=== PATIENT | male | born 1955 | race Caucasian/White ===

== ENCOUNTER → 2017-06-28 | Outpatient (CLI) | payer BC ==
[2017-06-28 09:29] LABS: Appearance,Urine Clear (Clear); Bilirubin,Urine Negative (Negative); Blood,Urine Negative (Negative); Color,Urine Yellow; Glucose,Urine (UA) Negative (Negative); Ketones,Urine Negative (Negative); Leukocyte Esterase,Urine Negative (Negative); Nitrite,Urine Negative (Negative); PH, Urine 7.5 (5.0-8.0); Protein,Urine Negative (Negative); Specific Gravity,Urine 1.015 (1.001-1.035); Urobilinogen,Urine <2.0 mg/dL (<2.0)
[2017-06-28 09:40] LABS: ALT 39 U/L (21-72); AST 26 U/L (17-59); Alkaline Phosphatase 60 U/L (38-126); Anion Gap 10 mmol/L; Blood Urea Nitrogen 14 mg/dL (9-20); Calcium 9.5 mg/dL (8.4-10.2); Carbon Dioxide 28 mmol/L (22-30); Chloride 101 mmol/L (98-107); Glucose 171 mg/dL (74-99); Potassium 4.7 mmol/L (3.5-5.1); Sodium 139 mmol/L (137-145); Total Bilirubin 0.9 mg/dL (0.2-1.3); Total Protein 7.1 g/dL (6.3-8.2)
[2017-06-28 09:58] LABS: HCT 52.2 % (39.0-53.0); HGB 16.9 gm/dL (13.0-17.5); MCHC 32.3 g/dL (31.0-37.0); Mean Platelet Volume 7.3; Platelet Count 179 k/uL (150-450); RBC 5.44 m/uL (4.30-5.90); RDW 12.6 % (11.5-15.5); WBC 5.3 k/uL (3.8-10.6)
== END | disposition home or self-care (01) ==
LOC: LABPAT 08:36
PROVIDERS: ATTEND Orthopaedic Surgery Sports Medicine
DX: Z01.818 Encounter for other preprocedural examination (principal); M17.12 Unilateral primary osteoarthritis, left knee
CPT/HCPCS: 36415; 80053; 81003; 85027; 85730

== ENCOUNTER 2017-07-01 09:52 | Inpatient (IN) | payer BC ==
[2017-06-24 07:58] VITALS: BMI 43.4
[~2017-07-01 09:52] MED LIST: ACETAMINOPHEN TAB 500 MG TAB PO ONE; HYDROmorphone 0.5 MG/0.5 ML SYRINGE IVP PRN; MELOXICAM 7.5 MG TAB PO ONE; ONDANSETRON 4 MG/2 ML VIAL IVP ONE; ONDANSETRON 4 MG/2 ML VIAL IVP PRN; ROPIVACAINE 246.25 MG, EPINEPHrine 0.5 MG, KETOROLAC 30 MG, cloNIDine HCL/PF 80 MCG, WA... MISCELLANE ONE; TRANEXAMIC ACID 1,000 MG in SODIUM CHLORIDE 0.9% 50 ML IVPB ONE; fentaNYL (PF) 50 MCG/ML 2 ML AMP IV PRN
[2017-07-01] MEDS ORDERED: LIDOCAINE 1% 20 ML VIAL (10MG/ML) FOR IV START INTRADERMA ONE (10:50)
[2017-07-01] MEDS: LACTATED RINGERS 1,000 ML IV SCH ×5 (10:51→22:40)
[2017-07-01] MEDS ORDERED: MIDAZOLAM 2 MG/2 ML VIAL IV ONE (11:01)
[2017-07-01] MEDS ORDERED: HYDROcodone/APAP 7.5-325MG 1 EACH TAB PO PRN (11:33)
[2017-07-01] MEDS ORDERED: DIAZEPAM 5 MG TAB PO PRN (11:33)
[2017-07-01] MEDS ORDERED: TEMAZEPAM 15 MG CAP PO PRN (11:33)
[2017-07-01] MEDS ORDERED: MAGNESIUM HYDROXIDE 2,400 MG/10 ML CUP PO PRN (11:33)
[2017-07-01] MEDS ORDERED: HYDROmorphone 0.5 MG/0.5 ML SYRINGE IVP PRN ×3 (11:33)
[2017-07-01] MEDS ORDERED: ACETAMINOPHEN TAB 325 MG TAB PO PRN (11:33)
[2017-07-01] MEDS ORDERED: BISACODYL 10 MG SUPP RECTAL PRN (11:33)
[2017-07-01] MEDS ORDERED: NA PHOS,M-B/NA PHOS,DI-BA 133 ML ENEMA RECTAL PRN (11:33)
[2017-07-01] MEDS ORDERED: NALOXONE 0.4 MG/ML 1 ML VIAL IV PRN (11:33)
[2017-07-01] MEDS ORDERED: hydrOXYzine PAMOATE 25 MG CAP PO PRN (11:33)
[2017-07-01] MEDS ORDERED: traMADol 50 MG TAB PO PRN (11:33)
[2017-07-01] MEDS ORDERED: ONDANSETRON 4 MG/2 ML VIAL IVP PRN (11:33)
[2017-07-01] MEDS ORDERED: PHENYLEPHRINE-0.9% NACL SYG 1 MG/10 ML SYRINGE ONE (12:18)
[2017-07-01] MEDS ORDERED: fentaNYL (PF) 50 MCG/ML 2 ML AMP ONE (12:18)
[2017-07-01] MEDS ORDERED: ePHEDrine SULFATE/0.9% NACL/PF 50 MG/5 ML SYRINGE IV ONE (12:18)
[2017-07-01] MEDS ORDERED: LACTATED RINGERS 1,000 ML IV ONE (13:22)
--- NOTE | 2017-07-01 15:07 | XR ---
EXAMINATION TYPE: XR knee limited LT DATE OF EXAM: 07/01/2017 COMPARISON: NONE HISTORY: Postop total knee TECHNIQUE: 2 view left knee FINDINGS: Postoperative changes are evident. Tibial femoral condylar prostheses have been placed. No acute fractures are evident. IMPRESSION: 1. No acute fractures post knee replacement.
[2017-07-01] MEDS ORDERED: ceFAZolin 3 GM in SODIUM CHLORIDE 0.9% 100 ML IVPB SCH (16:00)
[2017-07-01] MEDS: HYDROcodone/APAP 7.5-325MG 1 EACH TAB PO PRN ×2 (16:27→22:41)
[2017-07-01] MEDS ORDERED: SENNOSIDES-DOCUSATE SODIUM 1 EACH TAB PO SCH (21:00)
[2017-07-01] MEDS: ASPIRIN 325 MG TAB PO SCH (21:04)
--- NOTE | 2017-07-01 21:05 | OP ---
OPERATIVE REPORT DATE OF PROCEDURE: 07/01/2017. SURGEON: Linden Parks MD. CHIEF ENGINEER: Ori GARNETT. PREOPERATIVE DIAGNOSIS: Left knee osteoarthrosis. POSTOPERATIVE DIAGNOSIS: Left knee osteoarthritis. OPERATION: Left total knee arthroplasty. ANESTHESIA: Spinal with sedation. ESTIMATED BLOOD LOSS: 100 mL. TOURNIQUET TIME: 58 minutes at 250 mmHg. COMPLICATIONS: None apparent. DRAINS: None. DISPOSITION: Disposition postanesthesia care unit. INDICATIONS: Benjamin is a very pleasant 62-year-old male with longstanding history of left knee pain. History and physical examination are consist with advanced left knee osteoarthrosis. He has been through significant nonoperative management up to this point. Further treatment options were discussed and he has decided to go forward with the left total knee arthroplasty. The risks of procedure were discussed with him in detail. These risks include, but are not limited to risk of infection, nerve damage, bleeding, pain and risk of deep vein thrombosis which could lead to fatal pulmonary embolism. There is also risk of loosening of the implant which could require revision operation. The patient understands these risks. All of his questions were answered to his satisfaction. Appropriate informed consent was obtained. DESCRIPTION OF PROCEDURE: Patient identified in preoperative holding area. Surgical sites marked by both the patient myself. He was given 2 g of Ancef IV for prophylactic purposes. He was then transferred to the operative suite, placed supine on the operative table. Spinal anesthetic was then administered dosed per the anesthesia without apparent complication. Examination under anesthesia was then performed. The patient had near full extension. He had 100 degrees of flexion. The medial collateral ligament, lateral collateral ligament and posterior cruciate ligaments were stable. Tourniquet was then placed high on the left upper thigh well-padded in preparation for surgery. The patient's left lower extremity was then prepped and draped in usual sterile fashion. Standard surgical pause undertaken to ensure that we were operating the correct site and that appropriate preoperative antibiotics were given. All staff in the room were in agreement and we proceeded. The outlines of the patella were marked surgical pen. A planned 12 cm vertical incision centered over the patella was marked surgical pen. Leg was then exsanguinated with an Esmarch dressing. The knee was then flexed and the tourniquet inflated to 250 mmHg. The total tourniquet time for the procedure was 58 minutes. Incision was then made with a 10 blade scalpel. Dissection was carried down sharply overlying fascia. Great care was taken to minimize the skin flaps. The knee was then exposed using a standard medial parapatellar approach. A small cuff of quadriceps tendon was left for suturing. He was in a bit of varus preoperatively. A standard medial release was then made. Superficial medial collateral ligament was dissected off of the bone around the posterior aspect of the proximal tibia. The medial meniscus was then excised as well. The lateral meniscus was also released anteriorly. The leg was then externally rotated. The patella was everted. The knee was flexed. The retractors were then placed to protect the collateral ligaments. I then proceeded to remove the infrapatellar fat pad. This was excised sharply tangentially with the fibers of the patellar tendon. I then proceeded to remove peripheral osteophytes. This was done with a rongeur. I then proceeded with the distal femoral resection. He did have near full extension. A planned 9 mm resection was then done. The femoral canal was then entered in midline of the femur approximately 10 mm anterior to the origin of the posterior cruciate ligament. The charmaine was then advanced down the center of the femur and placed intramedullary. Based on preop radiographs, the angle between the anatomic and mechanical axis of the femur was approximately 4 to 5 degrees. The valgus angle of this femoral cutting guide was then set at 4 degrees for the left knee. This femoral cutting guide was then advanced over the intramedullary charmaine. This was seated firmly against the femur. I then as mentioned planned to take 9 mm off the distal femur. The cutting block was then secured onto the femur with pins. The jig was then removed. The distal femoral cut was made through the slot of the block. The pins were then removed. The distal femoral cutting block was removed. The accuracy of the distal femoral cuts was checked with 2 flat bars. I then proceed to femoral sizing. Posterior referencing sizing guide was held firmly against the resected distal surface of the femur. Posterior condyles were resting on the posterior plane of the guide. Sizing stylus was then placed on the anterior femur. The size was measured as a size 9. I then assessed for femoral rotation. Plan was for 3 degrees of external rotation. 3 degrees of external rotation was placed onto the jig. These holes were then marked. I then confirmed the rotation by 3 separate methods. This was done using the epicondylar axis as well as [place] line and posterior referencing. It was deemed that the external rotation was proper. I then went forward with placing the femoral cutting block. This was placed over the previously placed pin holes. The [place]han wing was then placed onto the anterior slots to ensure that we would not notch the anterior femur with the anterior femoral cut. I then proceeded with the anterior femoral cut. This was flush with the anterior cortex of the femur. Posterior cuts were then made followed by the anterior chamfer cut, then the posterior chamfer cut. The cutting block was then removed. Throughout the resection, the collateral ligaments were protected with retractors. I then placed a trial size 9 femur. It fit very nice medial-lateral and fit flush with the distal end of the femur. The drill holes were then made. I then proceeded with the tibial cut. Planned for cruciate-retaining knee. The guide was placed and set for varus valgus and for slope. The height was set for approximate 2 mm resection from the medial tibial plateau which was the lower side. I was happy with the alignment amount of resection. The cutting block was then pinned to the proximal tibia. The alignment charmaine was charmaine was removed and the proximal tibia was resected with a reciprocating saw. Again this was done with retractors protecting the collateral ligaments as well as the posterior cruciate ligament. I then proceeded to evaluate the flexion and extension gaps. A 10 mm block was placed. Flexion-extension gaps were equal. I then proceeded with resection of posterior osteophytes. He had very minimal posterior osteophytes. This was done using a curved osteotome. There was this resected the posterior osteophytes and posterior capsule stripping was also done off the posterior aspect of the femur at this time. The osteophytes were then removed. I then proceeded with resection of patella. The thickness of patella was measured using the caliper. The thickness was 25 mm. The thickness of the anticipated patellar dome was taken into account. Resection was then performed and confirmed to be equal in 4 quadrants using a caliper. Approximately 14 mm of bone remained after resection. A 38 x 9.5 standard patellar trial was then placed. The holes were then drilled. The trial was then placed. I then proceeded with sizing the tibial plate. A size G tibial plate fit very nicely. I then placed the trial femur the tibial tray and patellar button. A 10 mm trial insert was also placed. The components fit very nicely. He had full flexion extension. I then incrementally trialed to a 14 mm insert. The flexion-extension gaps felt better and the knee was stable to both varus and valgus stress. The patella tracked appropriately. The tibial tray rotation was marked with a Bovie. This was externally rotated properly. I then proceed with tibial preparation. I first drilled the femoral holes removed femoral component. The tibial tray was then set for proper external rotation as well as mediolateral placement onto the tibia. It was then pinned into place. I then proceed with punching the keel. I then decided to proceed with cementing of all of our components. The knee was thoroughly irrigated with sterile saline solution via pulse lavage. The lateral geniculate artery was identified and cauterized. All blood was removed from the bone of the tibia femur and patella with pulse lavage. I then proceed with cementing. Two packs of antibiotic bone cement were prepared on the back table by the surgical aide. I then proceeded with cementing the tibia first. The cement was impacted into the keel as well as deeply seated in the bone. A 2nd coat of cement was then placed. The tibia was then impacted into place. Excess cement was removed with [place]'s and jokers. I then proceed with cementing the femoral component. Femoral component was also cemented using standard technique. Excess cement was removed. A 14 mm trial insert was then placed into the knee. It was brought into full extension with a constant axial load placed until the cement had hardened. The patellar components were then cemented. This was held firmly with a compressive device until the cement had dried. When the cement dried, the knee was taken out of extension. All excess cement was removed from around the prosthesis. I then trialed with a 14 mm insert. The knee was stable. It came into full extension. I decided to go forward with the 14 mm cross- linked cruciate-retaining tibial insert. The polyethylene was then placed onto the tibial tray and locked into place. The knee was then reduced. The knee was again further irrigated with sterile saline solution with antibiotic added. The tourniquet was then deflated. Total tourniquet time for the procedure was 58 minutes at 250 mmHg. Final components were Bernard persona size 9 cruciate-retaining femoral component, a size G tibial tray, a 14 mm medial congruent cruciate-retaining polyethylene insert and a 38 x 9.5 mm patella. I then proceeded with closure. Again, the knee was thoroughly irrigated. The quadriceps tendon and the medial retinaculum were reapproximated with #2 Ethibond suture. The extensor mechanism was then closed with a running #2 Quill suture. Subcutaneous tissues were then closed with 2-0 Vicryl suture. The skin was closed with a running 3-0 Quill suture. Dermabond was applied to the incision. Sterile compressive dressing was then applied. All sponge, needle counts were deemed correct prior to closure. The patient tolerated the procedure without apparent complication. He was transferred recovery room in stable condition. MMODL / IJN: [id number] /
[2017-07-02] MEDS: HYDROcodone/APAP 7.5-325MG 1 EACH TAB PO PRN ×2 (05:12→11:13)
[2017-07-02 07:43] LABS: Basophils % (A) 1 %; Eosinophils # (A) 0.1 k/uL (0-0.7); Eosinophils % (A) 2 %; HCT 48.2 % (39.0-53.0); HGB 15.1 gm/dL (13.0-17.5); Lymphocytes # (A) 0.8 k/uL (1.0-4.8); Lymphocytes % (A) 11 %; MCH 31.3 pg (25.0-35.0); MCHC 31.4 g/dL (31.0-37.0); MCV 99.7 fL (80.0-100.0); Mean Platelet Volume 8.3; Monocytes # (A) 0.8 k/uL (0-1.0); Monocytes % (A) 11 %; Neutrophils % (A) 73 %; Platelet Count 107 k/uL (150-450); RBC 4.84 m/uL (4.30-5.90); RDW 12.6 % (11.5-15.5); WBC 6.9 k/uL (3.8-10.6)
[2017-07-02] MEDS: LACTATED RINGERS 1,000 ML IV SCH (07:51)
--- NOTE | 2017-07-02 08:01 | P.CONS ---
History of Present Illness - Reason for Consult Consult date: 07/02/17 Requesting physician: Linden Parks - Chief Complaint Medical management for status post left knee arthroplasty. - History of Present Illness This is a 62-year-old white male with known history of hypertension and obesity who has had left knee pain for quite some time. The patient is now status post knee arthroplasty of the left. The patient's blood pressure has been stable. The patient has no significant chest pain or shortness of breath stated. No nausea, vomiting or diarrhea. The patient is nonsmoker. There is no illicit substance abuse noted. Standard postop pulmonary toilet has been instituted. Review of Systems Constitutional: Denies chills, Denies fever Eyes: denies blurred vision, denies pain Ears, nose, mouth and throat: Denies headache, Denies sore throat Cardiovascular: Denies chest pain, Denies shortness of breath Respiratory: Denies cough Gastrointestinal: Denies abdominal pain, Denies diarrhea, Denies nausea, Denies vomiting Musculoskeletal: Denies neck pain, Denies neck stiffness, Denies redness of joints Musculoskeletal: left: knee stiffness, knee swelling Integumentary: Denies lesions Neurological: Denies numbness, Denies weakness Past Medical History Past Medical History: Hypertension, Osteoarthritis (OA) History of Any Multi-Drug Resistant Organisms: None Reported Past Surgical History: Joint Replacement, Orthopedic Surgery, Tonsillectomy Additional Past Surgical History / Comment(s): arthroscopy knee, right knee replaced 2017 Past Anesthesia/Blood Transfusion Reactions: No Reported Reaction Past Psychological History: No Psychological Hx Reported Smoking Status: Never smoker Past Alcohol Use History: Occasional Past Drug Use History: None Reported - Past Family History Father Family Medical History: COPD Medications and Allergies Home Medications Medication Instructions Recorded Confirmed Type Cholecalciferol [Vitamin D3] 1,000 unit PO DAILY 06/24/17 07/01/17 History Losartan/Hydrochlorothiazide 1 tab PO DAILY 06/24/17 07/01/17 History [Hyzaar 100-12.5 Tablet] Allergies Allergy/AdvReac Type Severity Reaction Status Date / Time No Known Allergies Allergy Verified 07/01/17 12:46 Physical Exam Vitals: Vital Signs Temp Pulse Pulse Resp BP Pulse Ox 07/02/17 07:00 98.4 F 79 14 122/80 94 L 07/01/17 21:16 98.0 F 81 16 143/84 07/01/17 19:16 97.8 F 16 120/80 96 07/01/17 17:15 97.0 F L 18 128/82 95 07/01/17 16:55 97.0 F L 84 16 128/78 95 07/01/17 16:47 97 F L 87 87 119/70 07/01/17 16:40 97.0 F L 16 119/70 96 07/01/17 16:20 97.0 F L 90 16 135/73 92 L 07/01/17 15:47 97.9 F 91 14 125/71 95 07/01/17 15:16 82 18 112/70 95 07/01/17 15:00 87 18 113/71 92 L 07/01/17 14:46 87 18 117/62 92 L 07/01/17 14:35 97.4 F L 94 12 117/65 94 L 07/01/17 11:19 75 18 132/90 100 07/01/17 10:49 98.1 F 91 18 187/81 96 Intake and Output 07/01/17 07/02/17 07/02/17 22:59 06:59 14:59 Intake Total 200 Output Total 800 400 Balance -600 -400 Intake: IV 200 Output: Urine 800 400 Other: Weight 145.15 kg 145.15 kg - Constitutional General appearance: obese - EENT Eyes: EOMI - Neck Neck: no lymphadenopathy - Respiratory Respiratory: bilateral: CTA - Cardiovascular Rhythm: regular Heart sounds: normal: S1, S2 - Integumentary Integumentary: no cellulitis - Neurologic Neurologic: CNII-XII intact - Musculoskeletal Musculoskeletal: strength equal bilaterally - Psychiatric Psychiatric: A&O x's 3, appropriate affect Results CBC & Chem 7: 07/02/17 06:48 Labs: Abnormal Lab Results - Last 24 Hours (Table) 07/02/17 Range/Units 06:48 Plt Count 107 L (150-450) k/uL Lymphocytes # 0.8 L (1.0-4.8) k/uL Assessment and Plan (1) Hypertension Current Visit: Yes Status: Acute Code(s): I10 - ESSENTIAL (PRIMARY) HYPERTENSION SNOMED Code(s): 86774777 (2) Primary osteoarthritis of left knee Current Visit: Yes Status: Acute Code(s): M17.12 - UNILATERAL PRIMARY OSTEOARTHRITIS, LEFT KNEE SNOMED Code(s): 081544149706611 Plan: Continue standard postop protocol. Check CBC in a.m. Otherwise, Dr. Valera's group will covering the weekend. Anticipate discharge in the next 2-3 days if stabilizing as anticipated.
[2017-07-02 08:35] VITALS: BP 122/80; PULSE 79; RESP 14; TEMP 98.4
[2017-07-02] MEDS ORDERED: LOSARTAN 50 MG TAB PO SCH (09:00)
[2017-07-02] MEDS ORDERED: NON-FORMULARY DRUG (Losartan/Hydrochlorothiazide [Hyzaar 100-12.5 Tablet] 1 TAB) PO SCH (09:00)
[2017-07-02] MEDS ORDERED: HYDROCHLOROTHIAZIDE 12.5 MG CAP PO SCH (09:00)
[2017-07-02] MEDS: ASPIRIN 325 MG TAB PO SCH (10:03)
--- NOTE | 2017-07-02 10:37 | P.DS ---
Providers Date of admission: 07/01/17 09:52 Expected date of discharge: 07/02/17 Attending physician: Linden Parks Consults: 07/01/17 11:33 Consult Physician Routine Consulting Provider: Justyn Johnson Consult Reason/Comments: post op medical management Do you want consulting provider notified?: Yes Primary care physician: Justyn Johnson - Discharge Diagnosis(es) (1) Primary osteoarthritis of left knee Patient was admitted to the OR on 07/01/2017 to undergo Left Total Knee Arthroplasty. He had failed conservative measures as an outpatient and desired to proceed with elective surgery after given informed consent He underwent the above procedure which he tolerated well without complication. Postoperative hospital course has remained without complication. On day of discharge he is afebrile, vital signs stable, labs within acceptable ranges, tolerating by mouth meds and diet, voiding without difficulty, positive flatus, denies abdominal pain or calf pain, pain is controlled on oral pain medication and has no new complaints. Wound is benign, neurovascular status is intact, calf is soft and nontender, abdomen soft and nontender. Review of systems is negative for numbness, tingling, fever, chills, chest pain, shortness breath, nausea, vomiting, dizziness, headaches, slurred speech or other. Current Visit: Yes Status: Acute Priority: Medium Procedures: Left TKA Patient Condition at Discharge: Good Plan - Discharge Summary Discharge Rx Participant: Yes New Discharge Prescriptions: New Aspirin 325 mg PO BID #60 tab Docusate [Colace] 100 mg PO BID #60 capsule HYDROcodone/APAP 7.5-325MG [[place] 7.5-325] 1 - 2 each PO Q6HR PRN #90 tab PRN Reason: Pain No Action Cholecalciferol [Vitamin D3] 1,000 unit PO DAILY Losartan/Hydrochlorothiazide [Hyzaar 100-12.5 Tablet] 1 tab PO DAILY Discharge Medication List Cholecalciferol [Vitamin D3] 1,000 unit PO DAILY 06/24/17 [History] Losartan/Hydrochlorothiazide [Hyzaar 100-12.5 Tablet] 1 tab PO DAILY 06/24/17 [ History] Aspirin 325 mg PO BID #60 tab 07/02/17 [Rx] Docusate [Colace] 100 mg PO BID #60 capsule 07/02/17 [Rx] HYDROcodone/APAP 7.5-325MG [[place] 7.5-325] 1 - 2 each PO Q6HR PRN #90 tab [Rx] Follow up Appointment(s)/Referral(s): [facility], [NON-STAFF] - Linden Parks MD [STAFF PHYSICIAN] - 2 Weeks Activity/Diet/Wound Care/Special Instructions: Keep wound clean and dry Take meds as directed Follow-up with Dr. Parks in office Weight bear as tolerated Discharge Disposition: HOME WITH HOME HEALTH SERVICES
[2017-07-02] MEDS ORDERED: CHOLECALCIFEROL 1,000 UNIT TAB PO SCH (12:00)
[2017-07-02] MEDS ORDERED: MULTIVITAMINS, THERA 1 EACH TAB PO SCH (12:00)
== END 2017-07-02 11:48 | disposition home health service (06) | DRG 470 ==
LOC: 2ORMAIN 09:52 → 3SUR 14:35
PROVIDERS: ADMIT Orthopaedic Surgery Sports Medicine; ATTEND Orthopaedic Surgery Sports Medicine
PROC: 0SRD0J9 Replacement of Left Knee Joint with Synthetic Substitute, Cemented, Open Approach (ICD-10-PCS; principal; 2017-07-01 11:40)
DX: M17.12 Unilateral primary osteoarthritis, left knee (principal); E66.01 Morbid (severe) obesity due to excess calories; Z68.41 Body mass index [BMI] 40.0-44.9, adult; G47.33 Obstructive sleep apnea (adult) (pediatric); I10 Essential (primary) hypertension; Z79.1 Long term (current) use of non-steroidal anti-inflammatories (NSAID); Z79.899 Other long term (current) drug therapy; Z96.651 Presence of right artificial knee joint
CPT/HCPCS: 36415; 80053; 81003; 85025; 85027; 85730; 88300

== ENCOUNTER → 2018-03-10 | Outpatient (CLI) | payer BC ==
--- NOTE | 2018-03-10 19:21 | CONS ---
CONSULTATION DATE OF SERVICE: 03/10/2018 This 63-year-old gentleman who has been evaluated in [facility] for possible obstructive sleep apnea-hypopnea syndrome. HISTORY OF PRESENT ILLNESS/SLEEP WAKE EVALUATION: SLEEP SCHEDULE: Patient usual sleep schedule basically 7 days a week from around 9:00 p.m. until 8:30 a.m. FALLING ASLEEP: No problems with falling asleep. He does not have TV in bedroom. DURING SLEEP: He sleeps with his in different positions with snoring and witnessed by his episodes of stopped breathing and awakenings with gasping for air. Patient wakes up from sleep 3 times with 3 episodes of nocturia. DURING THE DAY/SLEEP WAKE EVALUATION: No history of hypnagogic hallucinations, sleep paralysis or cataplexy. [place] Sleepiness Scale is 7. In the morning, patient wakes up tired, usually does not take naps. PAST MEDICAL HISTORY: Positive for hypertension. MEDICATIONS: Losartan. PAST SURGICAL HISTORY: Bilateral knee replacement. SOCIAL HISTORY: Negative for smoking. Alcohol consumption occasional. FAMILY HISTORY: Hypertension, heart problems, emphysema. REVIEW OF SYSTEMS: Awakenings from sleep, snoring, episodes of stopped breathing. PHYSICAL EXAM: gentleman without distress. BP 150/86, HR 77, RR 18, height 5 feet 11 1/2, weight 351.4, body mass index 48.2, temperature 97.5, oxygen saturation on room air 94%. Oropharynx: Extremely low position of soft palate. Mallampati 4. Significant restriction of nasal breathing. Wide neck 20 and 0.5 inches in circumference. ABDOMEN: Obese. EXTREMITIES: 1+ bilateral ankle edema. Neck: Supple, no JVD. Thyroid is not palpable. LUNGS: Clear to percussion and to auscultation. Good air exchange. No wheezing or rhonchi. HEART: S1, S2 regular. No murmurs, gallops, or rubs. ABDOMEN: Obese. Soft and nontender. Bowel sounds are present. No organomegaly appreciated. EXTREMITIES: +1 ankle edema, bilateral. No clubbing or cyanosis. PAPER RECLAIMING MACHINE OPERATOR: Awake, alert, and oriented X3. Cranial nerves 2 to 7 intact. There is no fasciculation or atrophy. noted. No focal deficits observed. IMPRESSION: 1. Snoring, witnessed episodes of stopped breathing during the sleep, extremely low position of soft palate, wide neck, awakenings from sleep, obstructive sleep apnea- hypopnea syndrome. 2. Obesity, body mass index 48.2. 3. Hypertension. 4. Status post bilateral knee replacement. 5. Mild swelling of legs. PLAN: 1. Polysomnography for evaluation of patient's breathing during sleep. 2. CPAP/BiPAP titration if sleep study confirms obstructive sleep apnea-hypopnea syndrome. 3. Preferable position during sleep on the side. 4. No driving if patient feels any sleepiness. 5. I will see patient for follow up visit to explain results of testing and following plan. Thank you very much for referring this patient for consultation. Sincerely, Alverto Wynne MD, PhD, FAASM Diplomat of [employer] [place] [employer] Conference Manager of [facility] MMODL / IJN: [id number] /
== END | disposition home or self-care (01) ==
LOC: SLEEP 13:53
PROVIDERS: ATTEND Internal Medicine
DX: G47.33 Obstructive sleep apnea (adult) (pediatric) (principal); E66.9 Obesity, unspecified; I10 Essential (primary) hypertension; M79.89 Other specified soft tissue disorders; Z68.42 Body mass index [BMI] 45.0-49.9, adult; Z96.653 Presence of artificial knee joint, bilateral; Z79.899 Other long term (current) drug therapy
CPT/HCPCS: 99211

== ENCOUNTER → 2018-07-07 | Outpatient (CLI) | payer OTHER ==
--- NOTE | 2018-07-07 18:37 | PN ---
PROGRESS NOTE DATE OF SERVICE: 07/07/2018 This patient is a 63-year-old gentleman who has been followed in [facility] for treatment of obstructive sleep apnea-hypopnea syndrome. Recently the patient had a diagnostic polysomnogram and CPAP titration, and I discussed results of his sleep studies with the patient in detail. Diagnostic polysomnogram showed extremely severe obstructive sleep apnea-hypopnea syndrome. During titration, the patient's respiration was under control with a CPAP pressure of 18 cm of water. Subsequently the patient received his CPAP unit, started to use it, and he is able to use it practically every night. He does experience some difficulties with exhalation, especially when he is starting to use his CPAP unit. I checked his CPAP machine. The patient used it 27/30 nights for more than 4 hours. Average usage is 7.9 hours. Pressure is 17.7 cm of water. He has a quite significant leak at 65 L/minute. Apnea-hypopnea index for the last month is 8.5. The patient used a full-face mask and then he was switched to a nasal mask, but with the nasal mask there is a possibility that he started to open his mouth because it is difficult for him to exhale. RAMP is on automatic regimen. MEDICATIONS: Losartan. PHYSICAL EXAMINATION: GENERAL: A pleasant patient in no distress. VITAL SIGNS: BP 137/82, HR 86, RR 16. Weight 362, temperature 98.3, oxygen saturation at room air 95%. HEENT: PERRLA, EOMI. Evaluation of oropharynx showed tongue protrudes midline. Extremely low position of soft palate. Mallampati IV. NECK: Supple. No JVD. Thyroid is not palpable. LUNGS: Clear to percussion and to auscultation. Good air exchange. No wheezing or rhonchi. HEART: S1, S2 regular. No murmurs, gallops or rubs. ABDOMEN: Obese. EXTREMITIES: No clubbing or cyanosis. LAYBOY OPERATOR: Awake, alert, and oriented X3. Cranial nerves 2 to 7 intact. There is no fasciculation or atrophy. noted. No focal deficits observed. IMPRESSION: 1. Extremely severe obstructive sleep apnea-hypopnea syndrome; apnea-hypopnea index 113 with oxygen desaturation to 75.3%. Patient demonstrated great compliance with treatment, benefitting from treatment. 2. Patient is experiencing some difficulties with exhalation at the beginning of the night. 3. Obesity. 4. Hypertension. 5. Status post bilateral knee replacement. PLAN: 1. Patient will continue to use CPAP equipment every night for the whole night. 2. I changed RAMP from automatic regimen to regular regimen, starting from 5 cm of water for 45 minutes. 3. We will try a different style of full-face mask, Jolene View or DreamWear, with a goal to decrease his leak, but again leak could be related to his open mouth; patient recently using nasal mask. 4. Other options include usage of nasal mask with nasal strips and chinstrap. 5. If patient continues to have difficulties with exhalation, he is a candidate for usage treatment with BiPAP. Thank you very much for allowing me to participate in the management of your patient. Sincerely, Alverto Wynne MD, PhD, FAASM Diplomat of [place] [employer] [place] [employer] [facility] [place] [facility] / KARENN: [phone] /
== END ==
LOC: SLEEP 16:36
PROVIDERS: ATTEND Internal Medicine
DX: Z53.9 Procedure and treatment not carried out, unspecified reason (principal)

== ENCOUNTER 2019-07-17 | Day surgery (SDC) | payer OTHER | END 2019-07-17 14:59 | disposition home or self-care (01) | CPT/HCPCS: 88304; 84132; 87070; 87205; 87075; 11406; J2250; J1644; J1100; J2405; J0690; J2001; J3010; J2704 ==

== ENCOUNTER → 2020-03-07 | Outpatient (CLI) | payer OTHER ==
--- NOTE | 2020-03-07 15:41 | SFUN ---
SLEEP CENTER FOLLOW UP NOTE DATE OF SERVICE: 03/07/2020 A 65-year-old gentleman who has been followed in the Sleep Center with treatment of extremely severe obstructive sleep apnea-hypopnea syndrome. Previously patient came more than about 1-1/2 years ago. Patient continued to use his CPAP equipment. Sleeps better with CPAP. Feels better during the day. During previous visit, apnea-hypopnea index was in the range of 8.5. I checked the patient CPAP unit. CPAP pressure is 18 cm of water. Usage is 24/30 nights for more than 4 hours which is acceptable compliance. Leak is 49 L/minute which is high, but patient has sosa and mustache and using full-face mask. Apnea-hypopnea index, although only 1.3, which is absolutely perfect and showed improvement comparing with the last year. MEDICATIONS: Losartan. PHYSICAL EXAM: Patient in no distress. BP 168/92, HR 76, RR 16, height 6, 0, weight 333.2, BMI 45.2, temperature 98.0. Patient lost about 30 pounds comparing to the previous visit. OROPHARYNX: Extremely low position of soft palate. Mallampati 4. NECK: Supple, no JVD. Thyroid is not palpable. LUNGS: Clear to percussion and to auscultation. Good air exchange. No wheezing or rhonchi. HEART: S1, S2 regular. No murmurs, gallops, or rubs. ABDOMEN: Soft and nontender. Bowel sounds are present. No organomegaly appreciated. EXTREMITIES: No clubbing or cyanosis. TRAINING GENERALIST: Awake, alert, and oriented X3. Cranial nerves 2 to 7 intact. There is no fasciculation or atrophy. noted. No focal deficits observed. IMPRESSION: 1. Extremely severe obstructive sleep apnea-hypopnea syndrome with apnea-hypopnea index 113, and oxygen desaturation to 75.3%. Presently patient demonstrated great compliance with treatment of full normal position of breathing on CPAP. 2. Obesity, but the weight is better. Patient lost 30 pounds. 3. Hypertension. 4. Status post bilateral knee replacement. PLAN: 1. Patient will continue to use PAP equipment every night for the whole night. 2. Sleep hygiene with regular time in bed for at least 7-1/2 to 8 hours. 3. Precautions related to driving. No driving if feeling sleepiness. 4. I will maintain all necessary prescription for PAP supplies including mask, tube, filters. 5. Watching weight. 6. No driving if feeling sleepiness. 7. Follow-up visit in 6 months or earlier if patient has any problems. Thank you very much for allowing me to participate in the management of your patient. Sincerely, Alverto Wynne MD, PhD, FAASM Diplomat of [place] [employer] [place] [employer] Instructor of [facility] [place] [facility] / KARENN: [phone] /
== END | disposition home or self-care (01) ==
LOC: SLEEP 10:40
PROVIDERS: ATTEND Internal Medicine
DX: G47.33 Obstructive sleep apnea (adult) (pediatric) (principal); I10 Essential (primary) hypertension; E66.9 Obesity, unspecified; Z99.89 Dependence on other enabling machines and devices; Z96.653 Presence of artificial knee joint, bilateral; Z79.899 Other long term (current) drug therapy

== ENCOUNTER 2020-08-25 12:14 | Inpatient (IN) | payer MEDICARE, OTHER ==
[2020-08-25 13:05] LABS: Basophils % (A) 0 %; Eosinophils # (A) 0.1 k/uL (0-0.7); Eosinophils % (A) 1 %; HCT 47.1 % (39.0-53.0); HGB 16.5 gm/dL (13.0-17.5); Lymphocytes # (A) 0.7 k/uL (1.0-4.8); Lymphocytes % (A) 5 %; MCH 32.6 pg (25.0-35.0); MCV 93.1 fL (80.0-100.0); Mean Platelet Volume 7.5; Monocytes # (A) 0.8 k/uL (0-1.0); Monocytes % (A) 6 %; Neutrophils # (A) 13.3 k/uL (1.3-7.7); Neutrophils % (A) 88 %; Platelet Count 240 k/uL (150-450); RBC 5.05 m/uL (4.30-5.90); WBC 15.2 k/uL (3.8-10.6)
[2020-08-25] MEDS ORDERED: cefTRIAXone IN SWFI 1,000 MG/10 ML SYRINGE IVP STA (13:13)
[2020-08-25 13:19] LABS: ALT 48 U/L (4-49); African American GFR (CKD) >90 (>60 ml/min/1.73 sqM); Albumin 3.4 g/dL (3.5-5.0); Anion Gap 8 mmol/L; Blood Urea Nitrogen 16 mg/dL (9-20); C Reactive Protein 6.2 mg/dL (<1.0); Calcium 9.1 mg/dL (8.4-10.2); Carbon Dioxide 22 mmol/L (22-30); Chloride 105 mmol/L (98-107); Glucose 250 mg/dL (74-99); Non-African American GFR(CKD) >90 (>60 ml/min/1.73 sqM); Sodium 135 mmol/L (137-145)
--- NOTE | 2020-08-25 13:26 | XR ---
EXAMINATION TYPE: XR chest 1V portable DATE OF EXAM: 08/25/2020 COMPARISON: NONE HISTORY: Cough and weakness. TECHNIQUE: 2 AP portable frontal upright views of the chest is obtained. FINDINGS: There are multifocal and confluent opacities in the bilateral lungs. There is some silhou etting of the left heart border. The cardiac silhouette size is upper limits of normal. The osseous structures are intact. IMPRESSION: Bilateral multifocal and confluent opacities consistent with covid-19 infection.
[2020-08-25 13:27] LABS: AST 44 U/L (17-59); Alkaline Phosphatase 69 U/L (38-126); LDH 1459 U/L (313-618); Magnesium 1.9 mg/dL (1.6-2.3); Potassium 4.5 mmol/L (3.5-5.1)
[2020-08-25 13:34] LABS: INR 1.1 (<1.2); Partial Thromboplastin Time 22.1 sec (22.0-30.0); Prothrombin Time 11.4 sec (9.0-12.0)
[2020-08-25 13:43] LABS: D-Dimer >34.10 mg/L FEU (<0.60)
--- NOTE | 2020-08-25 14:05 | CT ---
EXAMINATION TYPE: CT chest angio for PE DATE OF EXAM: 08/25/2020 COMPARISON: Chest x-ray earlier today HISTORY: Bilateral leg swelling, Covid positive CT DLP: 1033.4 mGycm Automated exposure control for dose reduction was used. CONTRAST: CT Chest for pulmonary embolism performed with with IV Contrast, patient injected with 100 mL of Isov ue 370. FINDINGS: LUNGS: Corresponding to x-ray are multifocal and confluent groundglass opacities bilaterally. Patient unable to hold breath making evaluation suboptimal particularly for subcentimeter nodules. No concer neel masses. No pleural effusion or pneumothorax seen. MEDIASTINUM: There is suboptimal study with more dense contrast opacification of the thoracic aorta s howing no dissection. Ascending aorta measures up to 3.9 cm in diameter axial image 57. Adjacent main pulmonary artery measures 2.9 cm in diameter axial image 57. Suboptimal bolus without central sagit radu or significant lobar pulmonary embolism. Suboptimal evaluation for smaller segmental and subsegme ntal PE. There are prominent bilateral hilar lymph nodes. No cardiomegaly or pericardial effusion i s seen. Moderate coronary artery calcification in the LAD distribution is noted. OTHER: Small splenule anterior and inferior to the spleen. Slight underlying scoliotic curvature. IMPRESSION: 1. Suboptimal study, no large central pulmonary embolism, cannot exclude smaller segmental and subseg mental PE in this exam. 2. Bilateral multifocal and confluent groundglass opacities consistent with known covid-19 infection.
[2020-08-25] MEDS ORDERED: SODIUM CHLORIDE 0.9% 1,000 ML IV ONE (14:06)
[2020-08-25] MEDS ORDERED: DEXAMETHASONE SOD PHOSPHATE 4 MG/ML 1 ML VIAL IV STA (14:07)
[2020-08-25] MEDS ORDERED: SODIUM CHLORIDE 0.9% 1,000 ML IV SCH (14:15)
--- NOTE | 2020-08-25 15:28 | US ---
EXAMINATION TYPE: US venous doppler duplex LE DATE OF EXAM: 08/25/2020 3:12 PM COMPARISON: NONE CLINICAL HISTORY: b/l calf pain covid with high dimer. Covid + x 3 weeks SIDE PERFORMED: Bilateral TECHNIQUE: The lower extremity deep venous system is examined utilizing real time linear array sonog coco with graded compression, doppler sonography and color-flow sonography. VESSELS IMAGED: Common Femoral Vein Deep Femoral Vein Greater Saphenous Vein * Femoral Vein Popliteal Vein Small Saphenous Vein * Proximal Calf Veins (* superficial vessels) Right Leg: Positive for DVT from proximal popliteal vein to calf veins Left Leg: Positive for SVT in SSV < 2 cm from popliteal vein junction. IMPRESSION: There is acute deep vein thrombosis in the popliteal and calf veins of the right leg. There is limited superficial vein thrombosis in the left leg in the short saphenous vein.
[2020-08-25] MEDS ORDERED: HEPARIN SODIUM 1,000 UN/ML (10ML VL) IV ONE (15:37)
[2020-08-25] MEDS ORDERED: HEPARIN SODIUM 1,000 UN/ML (10ML VL) IV PRN (15:37)
--- NOTE | 2020-08-25 15:38 | ED ---
SOB HPI - General Chief Complaint: Shortness of Breath Stated Complaint: Bilateral Leg Pain,R/O DVT Time Seen by Provider: 08/25/20 12:31 Source: patient Mode of arrival: wheelchair Limitations: no limitations - History of Present Illness Initial Comments: 65-year-old male presenting for bilateral leg pain rule out deep venous ecchymosis as well as shortness of breath. Patient states he has had come in for the past 3 weeks he states that last week he had such significant shortest of breath he can barely walk a few steps. Patient states his legs have felt swollen bilaterally knees had pain in the calfs bilaterally. Patient told his primary care provider and was told to come here for evaluation of blood clot patient denies any hemoptysis. Deep inspiration he states his lungs feel tight patient was of breath after a steroid shot and breathing treatments last week feel overall better but is still present. Patient denies any history due to pu lmonary embolism he denies any history of brain bleeds or rectal bleeding. Patient denies any severe chest pressure dropping arm pain or diaphoresis. Patient states he has continued fatigue and general malaise. Remaining review of systems negative upon arrival patient is hypoxic but overall he does not appear toxic he is in no respiratory distress. - Related Data Home Medications Medication Instructions Recorded Confirmed Losartan/Hydrochlorothiazide 1 tab PO DAILY 06/24/17 08/25/20 [Hyzaar 100-12.5 Tablet] Albuterol Inhaler [Ventolin Hfa 2 puff INHALATION RT-QID PRN 08/25/20 08/25/20 Inhaler] Magnesium Oxide [Blackwell] 500 mg PO DAILY 08/25/20 08/25/20 Multivitamins, Thera [Multivitamin 1 tab PO DAILY 08/25/20 08/25/20 (formulary)] dexAMETHasone [Dexamethasone] 4 mg PO DAILY 08/25/20 08/25/20 Allergies Allergy/AdvReac Type Severity Reaction Status Date / Time No Known Allergies Allergy Verified 08/25/20 14:01 Review of Systems ROS Statement: Those systems with pertinent positive or pertinent negative responses have been documented in the HPI. ROS Other: All systems not noted in ROS Statement are negative. Past Medical History Past Medical History: Hypertension Additional Past Medical History / Comment(s): cyst mid back History of Any Multi-Drug Resistant Organisms: None Reported Past Surgical History: Joint Replacement, Orthopedic Surgery, Tonsillectomy Additional Past Surgical History / Comment(s): arthroscopy knee, benny knee replaced, colonoscopy Past Anesthesia/Blood Transfusion Reactions: Previous Problems w/ Anesthesia Additional Past Anesthesia/Blood Transfusion Reaction / Comment(s): attempted procedure 06/29 pt states unable to do r/t unable to use glidoscope was given letter Past Psychological History: No Psychological Hx Reported Smoking Status: Never smoker Past Alcohol Use History: Occasional Past Drug Use History: None Reported - Past Family History Father Family Medical History: No Reported History Additional Family Medical History / Comment(s): emphysema General Exam - General Exam Comments Initial Comments: General: The patient is awake and alert, in no distress Eye: Pupils are equal, round and reactive to light, extra-ocular movements are intact. No nystagmus. There is normal conjunctiva bilaterally. No signs of icterus. Ears, nose, mouth and throat: There are moist mucous membranes and no oral lesions. Neck: The neck is supple, there is no tenderness or JVD. Cardiovascular: There is a regular rate and rhythm. No murmur, rub or gallop is appreciated. Respiratory: Respirations are non-labored, breath sounds are equal. No wheezes, stridor. SOme rhonchi and rales noted. Gastrointestinal: Soft, non-distended, non-tender abdomen without masses or organomegaly noted. There is no rebound or guarding present. Musculoskeletal: Normal ROM, no tenderness. Strength 5/5. Sensation intact. Radial and DP pulses equal bilaterally 2+. Neurological: A&O x 3. CN II-XII intact grossly, There are no obvious motor or sensory deficits. Coordination appears grossly intact. Speech is normal. Skin: Skin is warm and dry and no rashes or lesions are noted. Claf pain b/l. no identified obvious swelling Psychiatric: Cooperative, appropriate mood & affect, normal judgment. Limitations: no limitations Course Vital Signs 08/25/20 08/25/20 12:23 14:03 Temperature 97.7 F Pulse Rate 122 H 102 H Respiratory 20 18 Rate Blood Pressure 151/85 151/108 O2 Sat by Pulse 89 L 91 L Oximetry Medical Decision Making - Medical Decision Making hypoxic on arrival. some cyanosis appreciated. he was tachycardic. pt placed on 6 L, oxygenation improved. no hx of home o2. patient has + dvt and SVT. patient has no obvious central PE however there is extensive pneumonia, consistent wtih recent covid infection. pt will be placed on high intensity heparin and admitted for close monitoring and pulm consultation. Dr Mcdonough agreeable to care plan. - Lab Data Result diagrams: 08/25/20 12:47 08/25/20 12:47 Lab Results 08/25/20 08/25/20 08/25/20 Range/Units 12:47 12:47 12:47 WBC 15.2 H (3.8-10.6) k/uL RBC 5.05 (4.30-5.90) m/uL Hgb 16.5 (13.0-17.5) gm/dL Hct 47.1 (39.0-53.0) % MCV 93.1 (80.0-100.0) fL MCH 32.6 (25.0-35.0) pg MCHC 35.0 (31.0-37.0) g/dL RDW 13.0 (11.5-15.5) % Plt Count 240 (150-450) k/uL MPV 7.5 Neutrophils % 88 % Lymphocytes % 5 % Monocytes % 6 % Eosinophils % 1 % Basophils % 0 % Neutrophils # 13.3 H (1.3-7.7) k/uL Lymphocytes # 0.7 L (1.0-4.8) k/uL Monocytes # 0.8 (0-1.0) k/uL Eosinophils # 0.1 (0-0.7) k/uL Basophils # 0.0 (0-0.2) k/uL PT 11.4 (9.0-12.0) sec INR 1.1 (<1.2) APTT 22.1 (22.0-30.0) sec D-Dimer >34.10 H (<0.60) mg/L FEU Sodium 135 L (137-145) mmol/L Potassium 4.5 (3.5-5.1) mmol/L Chloride 105 (98-107) mmol/L Carbon Dioxide 22 (22-30) mmol/L Anion Gap 8 mmol/L BUN 16 (9-20) mg/dL Creatinine 0.68 (0.66-1.25) mg/dL Est GFR (CKD-EPI)AfAm >90 (>60 ml/min/1.73 sqM) Est GFR (CKD-EPI)NonAf >90 (>60 ml/min/1.73 sqM) Glucose 250 H (74-99) mg/dL Plasma Lactic Acid Derek (0.7-2.0) mmol/L Calcium 9.1 (8.4-10.2) mg/dL Magnesium 1.9 (1.6-2.3) mg/dL Total Bilirubin 1.0 (0.2-1.3) mg/dL AST 44 (17-59) U/L ALT 48 (4-49) U/L Alkaline Phosphatase 69 (38-126) U/L Lactate Dehydrogenase 1459 H (313-618) U/L Troponin I (0.000-0.034) ng/mL C-Reactive Protein 6.2 H (<1.0) mg/dL NT-Pro-B Natriuret Pep pg/mL Total Protein 7.0 (6.3-8.2) g/dL Albumin 3.4 L (3.5-5.0) g/dL Coronavirus (PCR) (Not Detectd) 08/25/20 08/25/20 08/25/20 Range/Units 12:47 12:47 12:47 WBC (3.8-10.6) k/uL RBC (4.30-5.90) m/uL Hgb (13.0-17.5) gm/dL Hct (39.0-53.0) % MCV (80.0-100.0) fL MCH (25.0-35.0) pg MCHC (31.0-37.0) g/dL RDW (11.5-15.5) % Plt Count (150-450) k/uL MPV Neutrophils % % Lymphocytes % % Monocytes % % Eosinophils % % Basophils % % Neutrophils # (1.3-7.7) k/uL Lymphocytes # (1.0-4.8) k/uL Monocytes # (0-1.0) k/uL Eosinophils # (0-0.7) k/uL Basophils # (0-0.2) k/uL PT (9.0-12.0) sec INR (<1.2) APTT (22.0-30.0) sec D-Dimer (<0.60) mg/L FEU Sodium (137-145) mmol/L Potassium (3.5-5.1) mmol/L Chloride (98-107) mmol/L Carbon Dioxide (22-30) mmol/L Anion Gap mmol/L BUN (9-20) mg/dL Creatinine (0.66-1.25) mg/dL Est GFR (CKD-EPI)AfAm (>60 ml/min/1.73 sqM) Est GFR (CKD-EPI)NonAf (>60 ml/min/1.73 sqM) Glucose (74-99) mg/dL Plasma Lactic Acid Derek 1.7 (0.7-2.0) mmol/L Calcium (8.4-10.2) mg/dL Magnesium (1.6-2.3) mg/dL Total Bilirubin (0.2-1.3) mg/dL AST (17-59) U/L ALT (4-49) U/L Alkaline Phosphatase (38-126) U/L Lactate Dehydrogenase (313-618) U/L Troponin I <0.012 (0.000-0.034) ng/mL C-Reactive Protein (<1.0) mg/dL NT-Pro-B Natriuret Pep 186 pg/mL Total Protein (6.3-8.2) g/dL Albumin (3.5-5.0) g/dL Coronavirus (PCR) (Not Detectd) 08/25/20 Range/Units 12:47 WBC (3.8-10.6) k/uL RBC (4.30-5.90) m/uL Hgb (13.0-17.5) gm/dL Hct (39.0-53.0) % MCV (80.0-100.0) fL MCH (25.0-35.0) pg MCHC (31.0-37.0) g/dL RDW (11.5-15.5) % Plt Count (150-450) k/uL MPV Neutrophils % % Lymphocytes % % Monocytes % % Eosinophils % % Basophils % % Neutrophils # (1.3-7.7) k/uL Lymphocytes # (1.0-4.8) k/uL Monocytes # (0-1.0) k/uL Eosinophils # (0-0.7) k/uL Basophils # (0-0.2) k/uL PT (9.0-12.0) sec INR (<1.2) APTT (22.0-30.0) sec D-Dimer (<0.60) mg/L FEU Sodium (137-145) mmol/L Potassium (3.5-5.1) mmol/L Chloride (98-107) mmol/L Carbon Dioxide (22-30) mmol/L Anion Gap mmol/L BUN (9-20) mg/dL Creatinine (0.66-1.25) mg/dL Est GFR (CKD-EPI)AfAm (>60 ml/min/1.73 sqM) Est GFR (CKD-EPI)NonAf (>60 ml/min/1.73 sqM) Glucose (74-99) mg/dL Plasma Lactic Acid Derek (0.7-2.0) mmol/L Calcium (8.4-10.2) mg/dL Magnesium (1.6-2.3) mg/dL Total Bilirubin (0.2-1.3) mg/dL AST (17-59) U/L ALT (4-49) U/L Alkaline Phosphatase (38-126) U/L Lactate Dehydrogenase (313-618) U/L Troponin I (0.000-0.034) ng/mL C-Reactive Protein (<1.0) mg/dL NT-Pro-B Natriuret Pep pg/mL Total Protein (6.3-8.2) g/dL Albumin (3.5-5.0) g/dL Coronavirus (PCR) Detected A (Not Detectd) Disposition Clinical Impression: Hypoxia, DVT (deep venous thrombosis), Dyspnea, COVID-19, Pneumonia Disposition: ADMITTED IP TO THIS [facility] Condition: Serious Is patient prescribed a controlled substance at d/c from ED?: No Referrals: Justyn Johnson MD [Primary Care Provider] - 1-2 days Time of Disposition: 16:04 Decision to Admit Reason: Admit from EC Decision Date: 08/25/20 Decision Time: 16:04
[2020-08-25] MEDS ORDERED: NALOXONE 0.4 MG/ML 1 ML VIAL IV PRN (16:05)
[2020-08-25] MEDS: HEPARIN SOD,PORK IN 0.45% NACL 25,000 UNIT in 0.45% NACL 1 250ML.BAG IV SCH (16:20)
[2020-08-25] MEDS: SODIUM CHLORIDE 0.9% 1,000 ML IV SCH (16:28)
[2020-08-25 17:41] LABS: Ferritin 2159.5 ng/mL (22.0-322.0)
[2020-08-25] MEDS: ALBUTEROL HFA INHALER INHALATION SCH ×3 (20:37→23:49)
--- NOTE | 2020-08-26 00:06 | P.HPIM ---
History of Present Illness H&P Date: 08/25/20 Chief Complaint: Shortness of breath Patient is a 65-year-old male with a known history of hypertension, recently diagnosed COVID-19 infection on 3 weeks ago and was continued on dexamethasone at home. Patient was seen by his primary care physician. Patient states that he was improving but for the past 1 week he has been having increased short of breath and barely walk few steps. He was also complaining of chest tightness and unable to take deep breaths. Patient was also complaining of bilateral knee swelling and calf pain. Patient was told by his primary care physician to come to ER for evaluation. Denied any complaints of dizziness or lightheadedness. No complaints of chest pain currently. Patient continued to have generalized weakness and malaise and fatigue.No fever no chills. No dysuria or hematuria. No hematemesis or melena. On admission patient was tachycardic and pulse ox 89% on room air. Patient was placed on oxygen via nasal cannula at 5 L and is saturating at 91%. Chest x-ray showed bilateral multifocal and confluent opacities consistent with COVID-[address] angio of the chest showed suboptimal study. No large central pulmonary embolism cannot exclude small segmental and subsegmental PE in the exam. Bilateral multifocal and confluent groundglass opacities consistent with known COVID-19 infection. Bilateral lower extremity duplex scan showed acute DVT in the popliteal and calf veins in the right leg. There is limited superficial vein thrombosis in the left leg in the short saphenous vein. COVID-19 PCR detected. Laboratory data showed LDH 1459, CRP 6.2 and ferritin 2159.5 and sodium 135 and WBC 15.2 lymphocytes 0.7 and D-dimer is greater than 34 proBNP 186 and blood sugar is 250 Review of Systems Constitutional: Patient denies any fever or chills . patient does have generalized weakness malaise and fatigue. Abdomen: Patient denied nausea vomiting and diarrhea and abdominal pain. Cardiovascular: Patient denies any chest pain or short of breath no palpitations. Respiratory: cough with the problem protein. Patient does have shortness of breath Neurologic: Patient denied any numbness or tingling headache. Musculoskeletal: Patient denies any complaints of joint swelling or deformity. Skin: Negative Psychiatric: Negative Endocrine: No heat or cold intolerance. No recent weight gain. Genitourinary: No dysuria or hematuria. All other 14 point ROS negative except the above Past Medical History Past Medical History: Hypertension Additional Past Medical History / Comment(s): cyst mid back: removed a year ago History of Any Multi-Drug Resistant Organisms: None Reported Past Surgical History: Joint Replacement, Orthopedic Surgery, Tonsillectomy Additional Past Surgical History / Comment(s): arthroscopy knee, benny knee replaced, colonoscopy Past Anesthesia/Blood Transfusion Reactions: Previous Problems w/ Anesthesia Additional Past Anesthesia/Blood Transfusion Reaction / Comment(s): attempted procedure 06/29 pt states unable to do r/t unable to use glidoscope was given letter Past Psychological History: No Psychological Hx Reported Smoking Status: Never smoker Past Alcohol Use History: Occasional Past Drug Use History: None Reported - Past Family History Father Family Medical History: No Reported History Additional Family Medical History / Comment(s): emphysema Medications and Allergies Home Medications Medication Instructions Recorded Confirmed Type Losartan/Hydrochlorothiazide 1 tab PO DAILY 06/24/17 08/25/20 History [Hyzaar 100-12.5 Tablet] Albuterol Inhaler [Ventolin Hfa 2 puff INHALATION RT-QID PRN 08/25/20 08/25/20 History Inhaler] Magnesium Oxide [Blackwell] 500 mg PO DAILY 08/25/20 08/25/20 History Multivitamins, Thera [Multivitamin 1 tab PO DAILY 08/25/20 08/25/20 History (formulary)] dexAMETHasone [Dexamethasone] 4 mg PO DAILY 08/25/20 08/25/20 History Allergies Allergy/AdvReac Type Severity Reaction Status Date / Time No Known Allergies Allergy Verified 08/25/20 14:01 Physical Exam Vitals: Vital Signs Temp Pulse Pulse Resp BP BP Pulse Ox 08/25/20 20:42 93 L 08/25/20 18:56 94 18 148/93 93 L 08/25/20 17:50 97.7 F 89 154/83 08/25/20 17:00 87 18 147/99 92 L 08/25/20 16:29 81 18 162/84 93 L 08/25/20 14:03 102 H 18 151/108 91 L 08/25/20 12:23 97.7 F 122 H 20 151/85 89 L Intake and Output 08/25/20 08/25/20 08/26/20 14:59 22:59 06:59 Intake Total 0 Balance 0 Intake: Oral 0 Other: Weight 145.15 kg 145.15 kg PHYSICAL EXAMINATION: Patient is lying in the bed comfortably, no acute distress, awake alert and oriented.. HEENT: Normocephalic. Neck is supple. Pupils reactive. Nostrils clear. Oral cavity is moist. Ears reveal no drainage. Neck reveals no JVD, carotid bruits, or thyromegaly. CHEST EXAMINATION: Trachea is central. Symmetrical expansion. Bibasilar diminished air entryLung alexis clear to auscultation and percussion. CARDIAC: Normal S1, S2 with no gallops. No murmurs ABDOMEN: Soft. Bowel sounds normal. No organomegaly. No abdominal bruits. Extremities: Patient does have swelling of the right lower extremity and calf tenderness. . No clubbing or cyanosis Neurologically awake, alert, oriented x3 with well-coordinated movements. No focal deficits noted Skin: No rash or skin lesions. Psychiatric: Coperative. Nonsuicidal Musculoskeletal: No joint swelling or deformity. Normal range of motion. Results CBC & Chem 7: 08/25/20 12:47 08/25/20 12:47 Labs: Abnormal Lab Results - Last 24 Hours (Table) 08/25/20 08/25/20 08/25/20 Range/Units 12:47 12:47 12:47 WBC 15.2 H (3.8-10.6) k/uL Neutrophils # 13.3 H (1.3-7.7) k/uL Lymphocytes # 0.7 L (1.0-4.8) k/uL APTT (22.0-30.0) sec D-Dimer >34.10 H (<0.60) mg/L FEU Sodium 135 L (137-145) mmol/L Glucose 250 H (74-99) mg/dL Ferritin 2159.5 H (22.0-322.0) ng/mL Lactate Dehydrogenase 1459 H (313-618) U/L C-Reactive Protein 6.2 H (<1.0) mg/dL Albumin 3.4 L (3.5-5.0) g/dL Coronavirus (PCR) (Not Detectd) 08/25/20 08/25/20 Range/Units 12:47 22:00 WBC (3.8-10.6) k/uL Neutrophils # (1.3-7.7) k/uL Lymphocytes # (1.0-4.8) k/uL APTT 53.1 H (22.0-30.0) sec D-Dimer (<0.60) mg/L FEU Sodium (137-145) mmol/L Glucose (74-99) mg/dL Ferritin (22.0-322.0) ng/mL Lactate Dehydrogenase (313-618) U/L C-Reactive Protein (<1.0) mg/dL Albumin (3.5-5.0) g/dL Coronavirus (PCR) Detected A (Not Detectd) Thrombosis Risk Factor Assmnt - DVT/VTE Prophylaxis DVT/VTE Prophylaxis: Pharmacologic Prophylaxis ordered - Choose All That Apply Any of the Below Risk Factors Present?: Yes Each Factor Represents 1 point: Obesity (BMI >25) Other Risk Factors: Yes Each Risk Factor Represents 2 Points: Age 61-74 years Thrombosis Risk Factor Assessment Total Risk Factor Score: 3 Thrombosis Risk Factor Assessment Level: Moderate Risk Assessment and Plan Assessment: Acute DVT in the popliteal vein and calf veins of the right leg and superficial veins thrombosis in the left leg in the short saphenous vein. Elevated D-dimer, ferritin, LDH and CRP levels Recent history of COVID-19 3 weeks ago Acute hypoxic respiratory failure requiring oxygen via nasal cannula Sinus tachycardia Hypertension Bilateral knee replacement history Moderate obesity with BMI 43.4 DVT prophylaxis patient is on heparin drip. Plan: Patient will be continued heparin drip and oxygen supplementation. Continue with pain management and can with home medications and follow-up closely.Follow- up inflammatory markers. Further recommendations based on clinical course. Time with Patient: Greater than 30
[2020-08-26] MEDS: HEPARIN SOD,PORK IN 0.45% NACL 25,000 UNIT in 0.45% NACL 1 250ML.BAG IV SCH ×2 (02:54→15:33)
[2020-08-26] MEDS: ALBUTEROL HFA INHALER INHALATION SCH ×6 (03:16→23:28)
[2020-08-26 08:57] LABS: Basophils % (A) 0 %; Eosinophils % (A) 0 %; HGB 15.4 gm/dL (13.0-17.5); Lymphocytes # (A) 1.2 k/uL (1.0-4.8); Lymphocytes % (A) 9 %; MCH 31.3 pg (25.0-35.0); MCHC 32.7 g/dL (31.0-37.0); MCV 95.6 fL (80.0-100.0); Mean Platelet Volume 7.9; Monocytes # (A) 0.8 k/uL (0-1.0); Monocytes % (A) 6 %; Neutrophils # (A) 11.5 k/uL (1.3-7.7); Neutrophils % (A) 83 %; Platelet Count 273 k/uL (150-450); RBC 4.92 m/uL (4.30-5.90); RDW 13.7 % (11.5-15.5); WBC 13.8 k/uL (3.8-10.6)
[2020-08-26] MEDS ORDERED: LOSARTAN-HCTZ 50-12.5 MG 1 EACH TAB PO SCH (09:00)
[2020-08-26] MEDS: LOSARTAN 50 MG TAB PO SCH (09:12)
[2020-08-26] MEDS: MULTIVITAMINS, THERA 1 EACH TAB PO SCH (09:12)
[2020-08-26] MEDS: dexAMETHasone 2 MG TAB PO SCH (09:12)
[2020-08-26] MEDS: MAGNESIUM OXIDE 400 MG TAB PO SCH (09:12)
[2020-08-26] MEDS: SODIUM CHLORIDE 0.9% 1,000 ML IV SCH ×2 (09:13→17:24)
[2020-08-26 09:17] LABS: African American GFR (CKD) >90 (>60 ml/min/1.73 sqM); Anion Gap 7 mmol/L; Blood Urea Nitrogen 13 mg/dL (9-20); C Reactive Protein 6.7 mg/dL (<1.0); Calcium 9.2 mg/dL (8.4-10.2); Carbon Dioxide 24 mmol/L (22-30); Chloride 108 mmol/L (98-107); Glucose 114 mg/dL (74-99); LDH 1256 U/L (313-618); Non-African American GFR(CKD) >90 (>60 ml/min/1.73 sqM); Potassium 5.1 mmol/L (3.5-5.1); Sodium 139 mmol/L (137-145)
--- NOTE | 2020-08-26 14:33 | P.CNPUL ---
History of Present Illness Consult date: 08/26/20 Requesting physician: Mario Chambers Reason for consult: pneumonia Chief complaint: Shortness of breath History of present illness: This is a 65-year-old white male with history of hypertension, has been feeling ill for the last 3 weeks. Patient was diagnosed with COVID-19 infection over 3 weeks ago. And he was taken Decadron at home. This was prescribed to him by his primary care physician. Patient had multiple constitutional symptoms including cough, shortness of breath, fever, aches and pains, weakness, fatigue, and over the last 1 week, his shortness of breath has become much worse. Patient was seen in the ER yesterday, noted to have bilateral patchy infiltrates. Patient was admitted with the impression of acute hypoxic respiratory failure secondary to COVID-[address] angiogram of the chest was suboptimal individual however bilateral multifocal groundglass opacities bilateral venous Doppler was done and it showed positive DVT in the left popliteal and calf veins.Patient was started on heparin. Covid PCR was positive. Inflammatory markers were elevated including LDH of 1459 CRP of 6.2 patient was noted to have elevated d-dimer lymphopenia. And WBC count of 15.2. Patient is now on 4 L nasal cannula and his O2 sats is 92%. Patient is obviously out of the window for rem , and he is not sick enough to be placed on toci Patient is now on the COVID-19 cocktail, and we are seeing him on consultation. Review of Systems Constitutional: Patient had fever, weakness, fatigue, malaise, and generalized aches and pains for the last 3 weeks GI: Denies nausea vomiting abdominal pain melena or hematemesis. Cardiovascular: Negative. Respiratory: Cough and shortness of breath. Neurologic: No headache blurred vision or dizziness. Musculoskeletal: Vague aches and pains Skin: Negative Psychiatric: Negative Endocrine: Negative. Genitourinary: No dysuria or hematuria. Hematologic: No history of clotting bleeding or bruising. Past Medical History Past Medical History: Hypertension Additional Past Medical History / Comment(s): cyst mid back: removed a year ago History of Any Multi-Drug Resistant Organisms: None Reported Past Surgical History: Joint Replacement, Orthopedic Surgery, Tonsillectomy Additional Past Surgical History / Comment(s): arthroscopy knee, benny knee replaced, colonoscopy Past Anesthesia/Blood Transfusion Reactions: Previous Problems w/ Anesthesia Additional Past Anesthesia/Blood Transfusion Reaction / Comment(s): attempted procedure 06/29 pt states unable to do r/t unable to use glidoscope was given letter Past Psychological History: No Psychological Hx Reported Smoking Status: Never smoker Past Alcohol Use History: Occasional Past Drug Use History: None Reported - Past Family History Father Family Medical History: No Reported History Additional Family Medical History / Comment(s): emphysema Medications and Allergies Home Medications Medication Instructions Recorded Confirmed Type Losartan/Hydrochlorothiazide 1 tab PO DAILY 06/24/17 08/25/20 History [Hyzaar 100-12.5 Tablet] Albuterol Inhaler [Ventolin Hfa 2 puff INHALATION RT-QID PRN 08/25/20 08/25/20 History Inhaler] Magnesium Oxide [Blackwell] 500 mg PO DAILY 08/25/20 08/25/20 History Multivitamins, Thera [Multivitamin 1 tab PO DAILY 08/25/20 08/25/20 History (formulary)] dexAMETHasone [Dexamethasone] 4 mg PO DAILY 08/25/20 08/25/20 History Allergies Allergy/AdvReac Type Severity Reaction Status Date / Time No Known Allergies Allergy Verified 08/25/20 14:01 Physical Exam Vitals: Vital Signs Temp Pulse Pulse Resp BP BP Pulse Ox 08/26/20 12:00 88 20 169/96 92 L 08/26/20 08:00 97.6 F 92 20 144/95 92 L 08/26/20 07:48 86 L 08/26/20 04:00 97.6 F 78 18 153/85 91 L 08/26/20 01:20 84 18 08/26/20 00:00 97.5 F L 84 18 159/91 91 L 08/25/20 20:42 93 L 08/25/20 20:00 97.5 F L 84 17 154/83 93 L 08/25/20 18:56 94 18 148/93 93 L 08/25/20 17:50 97.7 F 89 154/83 08/25/20 17:00 87 18 147/99 92 L 08/25/20 16:29 81 18 162/84 93 L Intake and Output 08/25/20 08/26/20 08/26/20 22:59 06:59 14:59 Intake Total 0 243.033 360 Balance 0 243.033 360 Intake: Intake, IV Titration 243.033 Amount Heparin Sod,Pork in 0.45% 243.033 NaCl 25,000 unit In 0.45 % NaCl 1 250ml.bag @ 15. 846 UNITS/KG/HR 23 mls/hr IV .[id number] [facility] Rx#: [id number] Oral 0 360 Other: # Voids 1 0 Weight 145.15 kg Physical Exam: Revealed a 65-year-old white male, obese, in no distress. On few liters nasal cannula. Head: Atraumatic, normocephalic HEENT:[Neck is supple.] [No neck masses.] [No thyromegaly.] [No JVD.]. EOMI, anicteric, no neck masses, no JVD, Chest: [Symmetrical chest expansion crackles at the bases bilaterally.] Cardiac Exam: [Normal S1 and S2, no S3 gallop, no murmur.] Abdomen: [Soft, nontender, no megaly, no rebound, no guarding, normal bowel sounds.] Extremities: There is evidence of right lower extremity swelling and calf tenderness. No clubbing or cyanosis Neurological Exam: [No focal neurologic deficit.] Alert and oriented 3. Psychiatric: Normal mood affect and normal mental status examination. Skin: No rashes. Musculoskeletal: No deformities, no limitation in range of motion. Results - Laboratory Findings CBC and BMP: 08/26/20 07:20 08/26/20 07:20 PT/INR, D-dimer PT 11.4 sec (9.0-12.0) 08/25/20 12:47 INR 1.1 (<1.2) 08/25/20 12:47 D-Dimer 29.31 mg/L FEU (<0.60) H 08/26/20 07:20 Abnormal lab findings: Abnormal Labs 08/25/20 08/25/20 08/25/20 12:47 12:47 12:47 WBC 15.2 H Neutrophils # 13.3 H Lymphocytes # 0.7 L APTT D-Dimer >34.10 H Sodium 135 L Chloride Glucose 250 H Ferritin 2159.5 H Lactate Dehydrogenase 1459 H C-Reactive Protein 6.2 H Albumin 3.4 L Coronavirus (PCR) 08/25/20 08/25/20 08/26/20 12:47 22:00 07:20 WBC 13.8 H Neutrophils # 11.5 H Lymphocytes # APTT 53.1 H D-Dimer Sodium Chloride Glucose Ferritin Lactate Dehydrogenase C-Reactive Protein Albumin Coronavirus (PCR) Detected A 08/26/20 08/26/20 08/26/20 07:20 07:20 07:20 WBC Neutrophils # Lymphocytes # APTT 53.2 H D-Dimer 29.31 H Sodium Chloride 108 H Glucose 114 H Ferritin Lactate Dehydrogenase 1256 H C-Reactive Protein 6.7 H Albumin Coronavirus (PCR) - Diagnostic Findings Chest x-ray: image reviewed (As noted in HPI) Additional studies: Venous Doppler as noted in HPI, patient had positive DVT in the right leg and positive superficial vein thromboses in the left leg Assessment and Plan Assessment: Impression: Acute hypoxic respiratory failure secondary to COVID-19 pneumonia symptoms have been going on for the last 3 weeks. Acute deep vein thrombosis involving the right lower extremity and superficial vein thromboses in the left leg. This is likely triggered by the COVID-19 infection. Sinus tachycardia secondary to above. Morbid obesity EOMI of 43.4. History of degenerative joint disease and bilateral knee replacement history. Elevated inflammatory markers secondary to COVID-19 infection. Recommendation: Continue present supportive care measures. Continue oxygen. Continue Decadron. Continue the COVID-19 cocktail. Continue heparin and transition to oral anticoagulation in the next 24 hours. Patient is out of the window for rem Patient does not qualify for toci We will continue to follow. Prognosis is relatively guarded. Time with Patient: Greater than 30
[2020-08-26] MEDS: FAMOTIDINE 20 MG TAB PO SCH (15:41)
[2020-08-26] MEDS: ZINC SULFATE 220 MG CAP PO SCH (15:41)
[2020-08-26 15:59] LABS: Ferritin 2056.9 ng/mL (22.0-322.0)
--- NOTE | 2020-08-26 21:39 | P.PN ---
Subjective Progress Note Date: 08/26/20 Principal diagnosis: Covid with DVT The patient is here essentially because of Covid hypoxia with pneumonia and element of DVT. Appreciate pulmonology input. The patient states right lower extremity swelling over the last several days. The mobility is noted as a possible cause. The patient now seems to be tolerating diet and states no voiding difficulties. Objective - Vital Signs Vital signs: Vital Signs Temp 97.8 F 08/26/20 16:00 Pulse 82 08/26/20 16:00 Resp 20 08/26/20 16:00 BP 161/98 08/26/20 16:00 Pulse Ox 95 08/26/20 16:00 Intake & Output 08/26/20 08/26/20 08/27/20 06:59 18:59 06:59 Intake Total 370.521 1929 Balance 558.407 3137 Intake: Intake, IV Titration 243.033 250 Amount Heparin Sod,Pork in 0.45% 243.033 250 NaCl 25,000 unit In 0.45 % NaCl 1 250ml.bag @ 15. 846 UNITS/KG/HR 23 mls/hr IV .[id number] [facility] Rx#: [id number] Oral 0 1560 Other: # Voids 1 4 # Bowel Movements 1 - Constitutional General appearance: Present: no acute distress, obese - Cardiovascular Rhythm: regular Heart sounds: normal: S1, S2 Abnormal Heart Sounds: Absent: S3 Gallop - Gastrointestinal General gastrointestinal: Present: soft. Absent: splenomegaly, tenderness - Psychiatric Psychiatric: Present: A&O x's 3, appropriate affect, intact judgment & insight - Labs CBC & Chem 7: 08/26/20 07:20 08/26/20 07:20 Labs: Abnormal Lab Results - Last 24 Hours (Table) 08/25/20 08/26/20 08/26/20 Range/Units 22:00 07:20 07:20 WBC 13.8 H (3.8-10.6) k/uL Neutrophils # 11.5 H (1.3-7.7) k/uL APTT 53.1 H (22.0-30.0) sec D-Dimer 29.31 H (<0.60) mg/L FEU Chloride (98-107) mmol/L Glucose (74-99) mg/dL Ferritin (22.0-322.0) ng/mL Lactate Dehydrogenase (313-618) U/L C-Reactive Protein (<1.0) mg/dL 08/26/20 08/26/20 Range/Units 07:20 07:20 WBC (3.8-10.6) k/uL Neutrophils # (1.3-7.7) k/uL APTT 53.2 H (22.0-30.0) sec D-Dimer (<0.60) mg/L FEU Chloride 108 H (98-107) mmol/L Glucose 114 H (74-99) mg/dL Ferritin 2056.9 H (22.0-322.0) ng/mL Lactate Dehydrogenase 1256 H (313-618) U/L C-Reactive Protein 6.7 H (<1.0) mg/dL Microbiology - Last 24 Hours (Table) 08/25/20 14:00 Blood Culture - Preliminary Blood No Growth after 24 hours 08/25/20 14:00 Blood Culture - Preliminary Blood No Growth after 24 hours Assessment and Plan (1) COVID-19 Current Visit: Yes Status: Acute Code(s): U07.1 - COVID-19 SNOMED Code(s): 189077054 (2) DVT (deep venous thrombosis) Current Visit: Yes Status: Acute Code(s): I82.409 - ACUTE EMBOLISM AND THOMBOS UNSP DEEP VN UNSP LOWER EXTREMITY SNOMED Code(s): 713780670 (3) Dyspnea Current Visit: Yes Status: Acute Code(s): R06.00 - DYSPNEA, UNSPECIFIED SNOMED Code(s): 177404822 (4) Hypoxia Current Visit: Yes Status: Acute Code(s): R09.02 - HYPOXEMIA SNOMED Code(s): 788904970 (5) Pneumonia Current Visit: Yes Status: Acute Code(s): J18.9 - PNEUMONIA, UNSPECIFIED ORGANISM SNOMED Code(s): 200946731 (6) Hypertension Current Visit: No Status: Acute Code(s): I10 - ESSENTIAL (PRIMARY) HYPERTEN CORRY SNOMED Code(s): 15313070 Plan: Continue current regimen of treatment. Most likely switch over to oral medication for DVT treatment. Prognosis discussed with the patient. He understands his overall prognosis at this time
[2020-08-27] MEDS: HEPARIN SOD,PORK IN 0.45% NACL 25,000 UNIT in 0.45% NACL 1 250ML.BAG IV SCH ×2 (00:38→12:42)
[2020-08-27] MEDS: ALBUTEROL HFA INHALER INHALATION SCH ×4 (03:04→16:51)
[2020-08-27 09:44] LABS: HCT 47.9 % (39.0-53.0); HGB 16.3 gm/dL (13.0-17.5); MCH 32.5 pg (25.0-35.0); MCHC 34.1 g/dL (31.0-37.0); MCV 95.4 fL (80.0-100.0); Mean Platelet Volume 7.5; Platelet Count 299 k/uL (150-450); RBC 5.02 m/uL (4.30-5.90); RDW 13.1 % (11.5-15.5); WBC 14.3 k/uL (3.8-10.6)
[2020-08-27] MEDS: MULTIVITAMINS, THERA 1 EACH TAB PO SCH (09:49)
[2020-08-27] MEDS: ZINC SULFATE 220 MG CAP PO SCH (09:50)
[2020-08-27] MEDS: dexAMETHasone 2 MG TAB PO SCH (09:50)
[2020-08-27] MEDS: FAMOTIDINE 20 MG TAB PO SCH (09:50)
[2020-08-27] MEDS: MAGNESIUM OXIDE 400 MG TAB PO SCH (09:50)
[2020-08-27] MEDS: LOSARTAN 50 MG TAB PO SCH (09:50)
[2020-08-27] MEDS: SODIUM CHLORIDE 0.9% 1,000 ML IV SCH (09:53)
[2020-08-27 10:13] LABS: ALT 51 U/L (4-49); AST 41 U/L (17-59); African American GFR (CKD) >90 (>60 ml/min/1.73 sqM); Albumin 3.4 g/dL (3.5-5.0); Alkaline Phosphatase 63 U/L (38-126); Anion Gap 3 mmol/L; Blood Urea Nitrogen 15 mg/dL (9-20); Calcium 9.8 mg/dL (8.4-10.2); Carbon Dioxide 32 mmol/L (22-30); Chloride 104 mmol/L (98-107); Glucose 114 mg/dL (74-99); Non-African American GFR(CKD) >90 (>60 ml/min/1.73 sqM); Potassium 5.7 mmol/L (3.5-5.1); Sodium 139 mmol/L (137-145); Total Bilirubin 0.7 mg/dL (0.2-1.3)
[2020-08-27 11:05] VITALS: RESP 20; TEMP 98.1
[2020-08-27 13:14] VITALS: BP 166/80; PULSE 73
[2020-08-27] MEDS ORDERED: APIXABAN 5 MG TAB PO SCH (14:30)
[2020-08-27] MEDS ORDERED: SODIUM POLYSTYRENE SULFONATE 15 GM/60 ML BOTTLE PO STA (14:55)
--- NOTE | 2020-08-27 14:57 | P.DS ---
Providers Date of admission: 08/25/20 17:33 Attending physician: Justyn Johnson Consults: 08/25/20 16:05 Consult Physician Routine Consulting Provider: Dennise Taveras Consult Reason/Comments: dvt, hypoxic covid pneumonia Do you want consulting provider notified?: Yes Primary care physician: Justyn Johnson - Discharge Diagnosis(es) (1) COVID-19 Current Visit: Yes Status: Acute (2) DVT (deep venous thrombosis) Current Visit: Yes Status: Acute (3) Dyspnea Current Visit: Yes Status: Acute (4) Hypoxia Current Visit: Yes Status: Acute (5) Pneumonia Current Visit: Yes Status: Acute (6) Hypertension Current Visit: No Status: Acute Hospital Course: This discharge summary an 65-year-old white male essentially admitted for Covid pneumonia with element of DVT. The patient was stabilized from an oxygen perspective and started on heparin. The patient is now discharged on Eliquis and doing well. Home oxygen therapy was started and the patient will follow up with me in 3 days. Patient Condition at Discharge: Stable Plan - Discharge Summary Discharge Rx Participant: No New Discharge Prescriptions: New Apixaban [Eliquis Starter Pack (for VTE)] 0 mg PO DIRECTED 30 Days #1 pack dexAMETHasone ORAL [Hexadrol] 6 mg PO DAILY #7 tab Continue Losartan/Hydrochlorothiazide [Hyzaar 100-12.5 Tablet] 1 tab PO DAILY Multivitamins, Thera [Multivitamin (formulary)] 1 tab PO DAILY Albuterol Inhaler [Ventolin Hfa Inhaler] 2 puff INHALATION RT-QID PRN PRN Reason: Shortness Of Breath dexAMETHasone [Dexamethasone] 4 mg PO DAILY Magnesium Oxide [Blackwell] 500 mg PO DAILY Discharge Medication List Losartan/Hydrochlorothiazide [Hyzaar 100-12.5 Tablet] 1 tab PO DAILY 06/24/17 [History] Albuterol Inhaler [Ventolin Hfa Inhaler] 2 puff INHALATION RT-QID PRN 08/25/20 [History] Magnesium Oxide [Blackwell] 500 mg PO DAILY 08/25/20 [History] Multivitamins, Thera [Multivitamin (formulary)] 1 tab PO DAILY 08/25/20 [History] dexAMETHasone [Dexamethasone] 4 mg PO DAILY 08/25/20 [History] Apixaban [Eliquis Starter Pack (for VTE)] 0 mg PO DIRECTED 30 Days #1 pack 08/27/20 [Rx] dexAMETHasone ORAL [Hexadrol] 6 mg PO DAILY #7 tab 08/27/20 [Rx] Follow up Appointment(s)/Referral(s): Anil Rangel MD [STAFF PHYSICIAN] - 09/24/20 1:00 pm Justyn Johnson MD [Primary Care Provider] - 09/02/20 2:10 pm
--- NOTE | 2020-08-27 16:37 | P.PN ---
Subjective Progress Note Date: 08/27/20 Principal diagnosis: Acute hypoxic respiratory failure secondary to COVID-19 pneumonia This is a 65-year-old white male with history of hypertension, has been feeling ill for the last 3 weeks. Patient was diagnosed with COVID-19 infection over 3 weeks ago. And he was taken Decadron at home. This was prescribed to him by his primary care physician. Patient had multiple constitutional symptoms including cough, shortness of breath, fever, aches and pains, weakness, fatigue, and over the last 1 week, his shortness of breath has become much worse. Patient was seen in the ER yesterday, noted to have bilateral patchy infiltrates. Patient was admitted with the impression of acute hypoxic respiratory failure secondary to COVID-[address] angiogram of the chest was suboptimal individual however bilateral multifocal groundglass opacities bilateral venous Doppler was done and it showed positive DVT in the left popliteal and calf veins.Patient was started on heparin. Covid PCR was positive. Inflammatory markers were elevated including LDH of 1459 CRP of 6.2 patient was noted to have elevated d-dimer lymphopenia. And WBC count of 15.2. Patient is now on 4 L nasal cannula and his O2 sats is 92%. Patient is obviously out of the window for rem , and he is not sick enough to be placed on toci Patient is now on the COVID-19 cocktail, and we are seeing him on consultation. Patient was reevaluated today on 08/27/2020, patient seems to be doing better, patient is on 2 L nasal cannula, and his O2 saturations 94%. Patient is on heparin and I will transition him to Eliquis. Patient could be discharged home today assuming he gets home oxygen, he remains in the COVID-19 cocktail, and he could go home on Eliquis. Patient is asking to be discharged home, he is doing great, feels much better than he felt when he came in. Objective - Vital Signs Vital signs: Vital Signs Temp 98.1 F 08/27/20 08:00 Pulse 73 08/27/20 12:00 Resp 20 08/27/20 12:00 BP 166/80 08/27/20 12:00 Pulse Ox 94 L 08/27/20 12:00 Intake & Output 08/26/20 08/27/20 08/27/20 18:59 06:59 18:59 Intake Total 1810 833.917 850 Balance 1810 833.917 850 Weight 145.5 kg Intake: Intake, IV Titration 250 733.917 250 Amount Heparin Sod,Pork in 0.45% 250 208.917 250 NaCl 25,000 unit In 0.45 % NaCl 1 250ml.bag @ 15. 846 UNITS/KG/HR 23 mls/hr IV .[id number] [facility] Rx#: [id number] Sodium Chloride 0.9% 1, 525 000 ml @ 75 mls/hr IV . [id number] [facility] Rx#:[id number] Oral 1560 100 600 Other: # Voids 4 4 # Bowel Movements 1 - Exam Physical Exam: Revealed a 65-year-old white male, obese, in no distress. On 2 L nasal cannula Head: Atraumatic, normocephalic HEENT:[Neck is supple.] [No neck masses.] [No thyromegaly.] [No JVD.]. EOMI, anicteric, no neck masses, no JVD, Chest: [Symmetrical chest expansion crackles at the bases bilaterally.] Cardiac Exam: [Normal S1 and S2, no S3 gallop, no murmur.] Abdomen: [Soft, nontender, no megaly, no rebound, no guarding, normal bowel sounds.] Extremities: There is evidence of right lower extremity swelling and calf t enderness. No clubbing or cyanosis Neurological Exam: [No focal neurologic deficit.] Alert and oriented 3. Psychiatric: Normal mood affect and normal mental status examination. Skin: No rashes. Musculoskeletal: No deformities, no limitation in range of motion. - Labs CBC & Chem 7: 08/27/20 08:49 08/27/20 08:49 Labs: Abnormal Lab Results - Last 24 Hours (Table) 08/27/20 08/27/20 Range/Units 08:49 08:49 WBC 14.3 H (3.8-10.6) k/uL Potassium 5.7 H (3.5-5.1) mmol/L Carbon Dioxide 32 H (22-30) mmol/L Glucose 114 H (74-99) mg/dL ALT 51 H (4-49) U/L Albumin 3.4 L (3.5-5.0) g/dL Microbiology - Last 24 Hours (Table) 08/25/20 14:00 Blood Culture - Preliminary Blood No Growth after 48 hours 08/25/20 14:00 Blood Culture - Preliminary Blood No Growth after 48 hours Assessment and Plan Assessment: Impression: Acute hypoxic respiratory failure secondary to COVID-19 pneumonia symptoms have been going on for the last 3 weeks. Acute deep vein thrombosis involving the right lower extremity and superficial vein thromboses in the left leg. This is likely triggered by the COVID-19 infection. Sinus tachycardia secondary to above. Morbid obesity EOMI of 43.4. History of degenerative joint disease and bilateral knee replacement history. Elevated inflammatory markers secondary to COVID-19 infection. Recommendation: Continue present supportive care measures. Continue oxygen. Arrange for home oxygen. Continue Decadron. Continue the COVID-19 cocktail. Start patient on Eliquis and discontinue heparin and he should be on Eliquis for at least 3 months. Cleared from our perspective to be discharged home today. Time with Patient: Less than 30
== END 2020-08-27 17:06 | disposition home or self-care (01) | DRG 177 ==
LOC: EC 12:14 → 3SCARD 17:33
PROVIDERS: ADMIT Family Medicine; ATTEND Family Medicine
DX: U07.1 COVID-19 (principal); J96.01 Acute respiratory failure with hypoxia; J12.82 Pneumonia due to coronavirus disease 2019; Z68.41 Body mass index [BMI] 40.0-44.9, adult; I82.812 Embolism and thrombosis of superficial veins of left lower extremity; I82.890 Acute embolism and thrombosis of other specified veins; I82.4Z1 Acute embolism and thrombosis of unspecified deep veins of right distal lower extremity; I82.431 Acute embolism and thrombosis of right popliteal vein; M19.90 Unspecified osteoarthritis, unspecified site; R00.0 Tachycardia, unspecified; R79.1 Abnormal coagulation profile; D72.810 Lymphocytopenia; E66.01 Morbid (severe) obesity due to excess calories; I10 Essential (primary) hypertension; Z82.5 Family history of asthma and other chronic lower respiratory diseases; Z96.653 Presence of artificial knee joint, bilateral; Z90.89 Acquired absence of other organs; Z79.899 Other long term (current) drug therapy; Z98.890 Other specified postprocedural states
CPT/HCPCS: 36415; 71045; 71275; 80048; 80053; 82728; 83605; 83615; 83735; 83880; 84145; 84484; 85025; 85027; 85379; 85610; 85730; 86140; 87040; 87635; 93005; 93970; 94640; 94760; 96361; 96374; 96375; 99285

== ENCOUNTER 2022-08-18 10:46 | Observation (INO) | payer MEDICARE, OTHER ==
[2022-08-18] MEDS ORDERED: ASPIRIN 81 MG PO STA (11:12)
[2022-08-18] MEDS ORDERED: NITROGLYCERIN SL TABS 0.4 MG TAB SUBLINGUAL PRN (11:39)
[2022-08-18 11:44] LABS: Basophils % (A) 0 %; Eosinophils # (A) 0.1 k/uL (0-0.7); Eosinophils % (A) 2 %; HCT 47.7 % (39.0-53.0); HGB 16.2 gm/dL (13.0-17.5); Lymphocytes # (A) 1.1 k/uL (1.0-4.8); Lymphocytes % (A) 22 %; MCH 31.6 pg (25.0-35.0); Mean Platelet Volume 7.8; Monocytes # (A) 0.4 k/uL (0-1.0); Monocytes % (A) 8 %; Neutrophils # (A) 3.4 k/uL (1.3-7.7); Neutrophils % (A) 65 %; Platelet Count 180 k/uL (150-450); RBC 5.12 m/uL (4.30-5.90); RDW 12.5 % (11.5-15.5); WBC 5.3 k/uL (3.8-10.6)
[2022-08-18 11:52] LABS: INR 0.9 (<1.2); Partial Thromboplastin Time 23.3 sec (22.0-30.0)
[2022-08-18 11:54] LABS: ALT 32 U/L (4-49); AST 28 U/L (17-59); African American GFR (CKD) >90 (>60 ml/min/1.73 sqM); Albumin 4.3 g/dL (3.5-5.0); Alkaline Phosphatase 70 U/L (38-126); Anion Gap 7 mmol/L; Blood Urea Nitrogen 13 mg/dL (9-20); Calcium 9.2 mg/dL (8.4-10.2); Carbon Dioxide 27 mmol/L (22-30); Chloride 103 mmol/L (98-107); Glucose 136 mg/dL (74-99); Magnesium 2.3 mg/dL (1.6-2.3); Non-African American GFR(CKD) >90 (>60 ml/min/1.73 sqM); Sodium 137 mmol/L (137-145); Total Bilirubin 1.2 mg/dL (0.2-1.3); Total Protein 7.5 g/dL (6.3-8.2)
--- NOTE | 2022-08-18 12:03 | ED ---
General Adult HPI - General Chief complaint: Chest Pain Stated complaint: Chest Pain Time Seen by Provider: 08/18/22 10:56 Source: patient, RN notes reviewed, old records reviewed Mode of arrival: ambulatory Limitations: no limitations - History of Present Illness Initial comments: Patient is a 67-year-old male with past medical history remarkable for h ypertension as well as suspected angina who presents emergency Department complaining of chest pain. Has been dealing with this chest pain for multiple months, however recently over the last few weeks he has noticed it is more persistent and seems to last longer. Describes it as a discomfort located over the left side of his chest. No known palliative or provocative factors. Denies any diaphoresis when the pain is present. Endorses possible mild shortness of breath when it is present. Denies any fevers, chills, cough. Denies any nausea or vomiting or abdominal pain. He is pending scheduling for possible stress test outpatient. Has not yet seen a credit charge authorizer. Denies any fevers, chills, cough. Denies any significant lower extremity edema. Denies orthopnea is any worse. Denies PND. Is on CPAP at home. No noticeable lower extremity pitting edema. Denies exertional dyspnea. Presents for further evaluation at this time.Patient does endorse some mild chest pain at this time. States it is not this severe chest discomfort that he feels.Patient does have a remote history of a DVT associated with a prior severe Covid 19 infection during the initial outbreak. No longer on blood thinners. - Related Data Home Medications Medication Instructions Recorded Confirmed Losartan/Hydrochlorothiazide 1 tab PO DAILY 06/24/17 08/18/22 [Hyzaar 100-12.5 Tablet] Albuterol Inhaler [Ventolin Hfa 2 puff INHALATION RT-QID PRN 08/25/20 08/18/22 Inhaler] Allergies Allergy/AdvReac Type Severity Reaction Status Date / Time No Known Allergies Allergy Verified 08/18/22 12:15 Review of Systems ROS Statement: Those systems with pertinent positive or pertinent negative responses have been documented in the HPI. Review of Systems: CONST: Denies fever EYES: Denies blurry vision ENT: Denies nasal congestion C/V: Endorses intermittent chest pain RESP: Denies shortness of breath GI: Denies abdominal pain : Denies dysuria SKIN: Denies rash. MSK: Denies joint pain. NEURO: Denies headache ROS Other: All systems not noted in ROS Statement are negative. Past Medical History Past Medical History: Hypertension Additional Past Medical History / Comment(s): cyst mid back: removed a year ago History of Any Multi-Drug Resistant Organisms: None Reported Past Surgical History: Joint Replacement, Orthopedic Surgery, Tonsillectomy Additional Past Surgical History / Comment(s): arthroscopy knee, benny knee replaced, colonoscopy Past Anesthesia/Blood Transfusion Reactions: Previous Problems w/ Anesthesia Additional Past Anesthesia/Blood Transfusion Reaction / Comment(s): attempted procedure 06/29 pt states unable to do r/t unable to use glidoscope was given letter Past Psychological History: No Psychological Hx Reported Smoking Status: Never smoker Past Alcohol Use History: Occasional Past Drug Use History: None Reported - Past Family History Father Family Medical History: No Reported History Additional Family Medical History / Comment(s): emphysema General Exam - General Exam Comments Initial Comments: General: Appears in no acute distress. HEAD: Normal with no signs of head trauma. EYES: PERRLA, EOMI, conjunctiva normal, no discharge. ENT: Hearing grossly intact, normal oropharynx. RESPIRATORY: Clear breath sounds bilaterally. No wheezes, rales, or rhonchi. C/V: Regular rate and rhythm. S1 and S2 auscultated, mild symmetrical bilateral lower extremity pitting edema, peripheral pulses 2+ and intact throughout ABD: Abd is soft, nontender, nondistended EXT: Normal range of motion, no obvious deformity SKIN: No rashes or lesions observed on exposed skin. NEURO: Alert and oriented 4 Limitations: no limitations Course Vital Signs 08/18/22 08/18/22 08/18/22 10:49 10:51 11:12 Temperature 97.8 F Pulse Rate 87 75 Pulse Rate [ 75 [employer] ] Respiratory 20 20 Rate Blood Pressure 179/98 139/86 O2 Sat by Pulse 96 98 Oximetry 08/18/22 08/18/22 08/18/22 11:51 12:00 12:59 Temperature Pulse Rate 70 70 64 Pulse Rate [ Business Job Titles ] Respiratory 16 16 16 Rate Blood Pressure 153/96 153/95 150/84 O2 Sat by Pulse 98 98 98 Oximetry Medical Decision Making - Medical Decision Making Was pt. sent in by a medical professional or institution (, PA, HEADING UP MACHINE OPERATOR, urgent care, hospital, or intermediate...) When possible be specific @ -No Did you speak to anyone other than the patient for history (EMS, parent, family, police, friend...)? What history was obtained from this source @ -No Did you review nursing and triage notes (agree or disagree)? Why? @ -I reviewed and agree with nursing and triage notes Were old charts reviewed (outside hosp., previous admission, EMS record, old EKG, old radiological studies, urgent care reports/EKG's, intermediate records)? Report findings @ -No old charts were reviewed Differential Diagnosis (chest pain, altered mental status, abdominal pain women, abdominal pain men, vaginal bleeding, weakness, fever, dyspnea, syncope, hea dache, dizziness, GI bleed, back pain, seizure, CVA, palpatations, mental health, musculoskeletal)? @ -Differential Chest Pain: Stable Angina, Unstable Angina, STEMI, NSTEMI Aortic Dissection, Pneumothorax, Musculoskeletal, Esophageal Spasm GERD, Cholecystitis, Pancreatitis, Zoster, this is not meant to be an all-inclusive list. EKG interpreted by me (3pts min.). @ -As above X-rays interpreted by me (1pt min.). @ -Chest x-ray shows no obvious cardiopulmonary process. CT interpreted by me (1pt min.). @ -None done U/S interpreted by me (1pt. min.). @ -None done What testing was considered but not performed or refused? (CT, X-rays, U/S, labs)? Why? @ -None What meds were considered but not given or refused? Why? @ -None Did you discuss the management of the patient with other professionals (professionals i.e. , PA, HEADING UP MACHINE OPERATOR, lab, RT, psych nurse, social studies teacher, surgical territory manager, teacher, correctional security officer, shoe caser)? Give summary @ -No Was smoking cessation discussed for >3mins.? @ -No Was critical care preformed (if so, how long)? @ -No Were there social determinants of health that impacted care today? How? (Homelessness, low income, unemployed, alcoholism, drug addiction, transportation, low edu. Level, literacy, decrease access to med. care, fci, rehab)? @ -No Was there de-escalation of care discussed even if they declined (Discuss DNR or withdrawal of care, Hospice)? DNR status @ -No What co-morbidities impacted this encounter? (DM, HTN, Smoking, COPD, CAD, Cancer, CVA, ARF, Chemo, Hep., AIDS, mental health diagnosis, sleep apnea, morbid obesity)? @ -Hypertension Was patient admitted / discharged? Hospital course, mention meds given and route, prescriptions, significant lab abnormalities, going to OR and other pertinent info. @ -Based on the patient's presentation and physical exam, I'm concerned for possible cardiopulmonary etiology for his current symptoms. We will obtain a cardiac workup including a screening EKG, chest x-ray, labs. He will be given an aspirin. We will attempt a sublingual nitro glycerin tablets to see if they affect his pain at all. He was in agreement this plan. Nitroglycerin did nothing to improve his discomfort. Remains stable in no distress at this time. EKG shows no signs of acute ischemia. Labs were r emarkable for an undetectable troponin. BNP is within normal limits. Remainder the labs are within acceptable limits. On reevaluation, patient remains relatively asymptomatic. We did discuss his w orkup. I did recommend that as his symptoms have been persistent as well as more frequently the and he has not yet followed up with credit charge authorizer I believe it is best to admit him to the hospital for evaluation. He was in agreement this plan. I did discuss the case with patient's admitting physician Dr. Johnson who is in agreement this plan. Cardiology was consulted. Echo was ordered. Undiagnosed new problem with uncertain prognosis? @ -No Drug Therapy requiring intensive monitoring for toxicity (Heparin, Nitro, Insulin, Cardizem)? @ -No Were any procedures done? @ -No Diagnosis/symptom? @ -Chest pain Acute, or Chronic, or Acute on Chronic? @ -Acute on chronic Uncomplicated (without systemic symptoms) or Complicated (systemic symptoms)? @ -Uncomplicated Side effects of treatment? @ -none Exacerbation, Progression, or Severe Exacerbation] @ -no Poses a threat to life or bodily function? @ -Possibly, unknown etiology - Lab Data Result diagrams: 08/18/22 11:12 08/18/22 11:12 Lab Results 08/18/22 08/18/22 08/18/22 Range/Units 11:12 11:12 11:12 WBC 5.3 (3.8-10.6) k/uL RBC 5.12 (4.30-5.90) m/uL Hgb 16.2 (13.0-17.5) gm/dL Hct 47.7 (39.0-53.0) % MCV 93.0 (80.0-100.0) fL MCH 31.6 (25.0-35.0) pg MCHC 34.0 (31.0-37.0) g/dL RDW 12.5 (11.5-15.5) % Plt Count 180 (150-450) k/uL MPV 7.8 Neutrophils % 65 % Lymphocytes % 22 % Monocytes % 8 % Eosinophils % 2 % Basophils % 0 % Neutrophils # 3.4 (1.3-7.7) k/uL Lymphocytes # 1.1 (1.0-4.8) k/uL Monocytes # 0.4 (0-1.0) k/uL Eosinophils # 0.1 (0-0.7) k/uL Basophils # 0.0 (0-0.2) k/uL PT 10.0 (9.0-12.0) sec INR 0.9 (<1.2) APTT 23.3 (22.0-30.0) sec Sodium 137 (137-145) mmol/L Potassium 4.0 (3.5-5.1) mmol/L Chloride 103 (98-107) mmol/L Carbon Dioxide 27 (22-30) mmol/L Anion Gap 7 mmol/L BUN 13 (9-20) mg/dL Creatinine 0.74 (0.66-1.25) mg/dL Est GFR (CKD-EPI)AfAm >90 (>60 ml/min/1.73 sqM) Est GFR (CKD-EPI)NonAf >90 (>60 ml/min/1.73 sqM) Glucose 136 H (74-99) mg/dL Calcium 9.2 (8.4-10.2) mg/dL Magnesium 2.3 (1.6-2.3) mg/dL Total Bilirubin 1.2 (0.2-1.3) mg/dL AST 28 (17-59) U/L ALT 32 (4-49) U/L Alkaline Phosphatase 70 (38-126) U/L Troponin I (0.000-0.034) ng/mL NT-Pro-B Natriuret Pep pg/mL Total Protein 7.5 (6.3-8.2) g/dL Albumin 4.3 (3.5-5.0) g/dL 08/18/22 08/18/22 Range/Units 11:12 11:12 WBC (3.8-10.6) k/uL RBC (4.30-5.90) m/uL Hgb (13.0-17.5) gm/dL Hct (39.0-53.0) % MCV (80.0-100.0) fL MCH (25.0-35.0) pg MCHC (31.0-37.0) g/dL RDW (11.5-15.5) % Plt Count (150-450) k/uL MPV Neutrophils % % Lymphocytes % % Monocytes % % Eosinophils % % Basophils % % Neutrophils # (1.3-7.7) k/uL Lymphocytes # (1.0-4.8) k/uL Monocytes # (0-1.0) k/uL Eosinophils # (0-0.7) k/uL Basophils # (0-0.2) k/uL PT (9.0-12.0) sec INR (<1.2) APTT (22.0-30.0) sec Sodium (137-145) mmol/L Potassium (3.5-5.1) mmol/L Chloride (98-107) mmol/L Carbon Dioxide (22-30) mmol/L Anion Gap mmol/L BUN (9-20) mg/dL Creatinine (0.66-1.25) mg/dL Est GFR (CKD-EPI)AfAm (>60 ml/min/1.73 sqM) Est GFR (CKD-EPI)NonAf (>60 ml/min/1.73 sqM) Glucose (74-99) mg/dL Calcium (8.4-10.2) mg/dL Magnesium (1.6-2.3) mg/dL Total Bilirubin (0.2-1.3) mg/dL AST (17-59) U/L ALT (4-49) U/L Alkaline Phosphatase (38-126) U/L Troponin I <0.012 (0.000-0.034) ng/mL NT-Pro-B Natriuret Pep 31 pg/mL Total Protein (6.3-8.2) g/dL Albumin (3.5-5.0) g/dL - EKG Data -: EKG Interpreted by Me EKG Comments: 12-lead Electrocardiogram Interpretation Note EKG was reviewed and interpreted by myself. 12-lead ECG performed at 1059 is interpreted by me as revealing normal sinus rhythm at a rate of 80 beats per minute. Veteran is normal. MI interval is 154 ms, QRS durations are 103 ms, QTc is 419 ms.. There were no ST or T wave abnormalities to suggest myocardial ischemia or injury. R wave progression across the precordium was satisfactory. By my interpretation this EKG is non-diagnostic for acute ischemia. When co mpared with EKG from August 2020, no significant change. Disposition Clinical Impression: Chest pain Disposition: ADMITTED IP TO THIS HOSP Condition: Stable Referrals: Justyn Johnson MD [Primary Care Provider] - 1-2 days Time of Disposition: 12:58
--- NOTE | 2022-08-18 12:07 | XR ---
EXAMINATION TYPE: XR chest 2V DATE OF EXAM: 08/18/2022 COMPARISON: 08/25/2020 HISTORY: Shortness of breath TECHNIQUE: Frontal and lateral views of the chest are obtained. FINDINGS: Scattered senescent parenchymal changes noted. Hyperinflation compatible with COPD. No evidence for infiltrate. No evidence for atelectasis. Heart size is stable. Mediastinal structures are stable and grossly unremarkable. No evidence for hilar prominence. Degenerative changes dorsal spine. IMPRESSION: 1. No evidence for acute pulmonary disease.
[2022-08-18] MEDS ORDERED: NALOXONE 0.4 MG/ML 1 ML VIAL IV PRN (13:08)
[2022-08-18] MEDS ORDERED: ALBUTEROL HFA INHALER INHALATION PRN (13:09)
[2022-08-18] MEDS: HEPARIN SODIUM,PORCINE/PF 5,000 UNIT/0.5 ML SYRINGE SQ SCH ×2 (16:26→22:57)
--- NOTE | 2022-08-18 18:01 | CA ---
Transthoracic Echo Report Name: Benjamin Marcelo Age: 67 Gender: M : 1955 Exam Date: 08/18/2022 14:09 Exam Location: [facility] Ht (in): 72 Wt (lb): 320 Ordering Physician: Edmond Pagan MD Attending/Referring Phys: Supervisor Roving Department Radha Jeffrey RDCS Procedure CPT: Indications: Chest Pain Cardiac Hx: Technical Quality: Technically difficult study Contrast 1: Lumason Total Dose (mL): 3 Contrast 2: Total Dose (mL): MEASUREMENTS (Male / Female) Normal Values 2D ECHO LV Diastolic Diameter PLAX 5.2 cm 4.2 - 5.9 / 3.9 - 5.3 cm LV Systolic Diameter PLAX 3.2 cm IVS Diastolic Thickness 1.3 cm 0.6 - 1.0 / 0.6 - 0.9 cm LVPW Diastolic Thickness 1.4 cm 0.6 - 1.0 / 0.6 - 0.9 cm LV Relative Wall Thickness 0.5 RV Internal Dim ED PLAX 3.6 cm LA Systolic Diameter LX 3.2 cm 3.0 - 4.0 / 2.7 - 3.8 cm M-MODE Aortic Root Diameter MM 4.0 cm MV E Point Septal Separation 0.6 cm AV Cusp Separation MM 1.3 cm DOPPLER AV Peak Velocity 140.8 cm/s AV Peak Gradient 7.9 mmHg MV Area PHT 2.6 cm??? Mitral E Point Velocity 72.6 cm/s Mitral A Point Velocity 96.5 cm/s Mitral E to A Ratio 0.8 MV Deceleration Time 293.1 ms MV E' Velocity 5.6 cm/s Mitral E to MV E' Ratio 13.0 FINDINGS Left Ventricle Left ventricular ejection fraction is estimated at 55-60 %. Left ventricular cavity size normal. Moderate concentric left ventricular hypertrophy. Normal left ventricular wall motion. Right Ventricle Mild right ventricular dilatation. No TR unable to estimate the right ventricular systolic pressure. Right Atrium Normal right atrial size. Left Atrium Normal left atrial size. Mitral Valve Mitral annular calcification. No mitral stenosis, regurgitation or prolapse. Aortic Valve No aortic valve stenosis or regurgitation. Tricuspid Valve Structurally normal tricuspid valve. No tricuspid regurgitation. Pulmonic Valve Pulmonic valve not well visualized. Pericardium No pericardial effusion. Pericardial fat pad Aorta Moderate aortic dilatation at the level of the sinuses of valsalva 40 mm CONCLUSIONS Left ventricle hypertrophy with preserved systolic function Dilated aorta at the level of the sinus of Valsalva Mild RV enlargement Previewed by: Dr. Leander Cooper MD (Electronically Signed) Final Date: 18 August 2022 18:00
[2022-08-19] MEDS ORDERED: DOBUTamine DRIP for NUC MED 500 MG in DEXTROSE/WATER 1 250ML.BAG IV PRN (08:08)
[2022-08-19] MEDS ORDERED: LOSARTAN 50 MG TAB PO SCH (09:00)
[2022-08-19] MEDS ORDERED: VALSARTAN 160 MG TAB PO SCH (09:00)
[2022-08-19] MEDS ORDERED: hydroCHLOROthiazide 12.5 MG CAP PO SCH (09:00)
[2022-08-19] MEDS ORDERED: ASPIRIN 81 MG PO SCH (09:00)
[2022-08-19] MEDS: HEPARIN SODIUM,PORCINE/PF 5,000 UNIT/0.5 ML SYRINGE SQ SCH (09:09)
[2022-08-19 09:47] LABS: Basophils % (A) 0 %; Eosinophils # (A) 0.1 k/uL (0-0.7); Eosinophils % (A) 3 %; HCT 49.3 % (39.0-53.0); HGB 16.3 gm/dL (13.0-17.5); Lymphocytes % (A) 22 %; MCH 31.4 pg (25.0-35.0); MCV 95.1 fL (80.0-100.0); Mean Platelet Volume 7.6; Monocytes # (A) 0.3 k/uL (0-1.0); Monocytes % (A) 8 %; Neutrophils # (A) 2.9 k/uL (1.3-7.7); Neutrophils % (A) 65 %; Platelet Count 183 k/uL (150-450); RBC 5.18 m/uL (4.30-5.90); RDW 12.6 % (11.5-15.5); WBC 4.5 k/uL (3.8-10.6)
[2022-08-19 09:57] LABS: African American GFR (CKD) >90 (>60 ml/min/1.73 sqM); Anion Gap 6 mmol/L; Blood Urea Nitrogen 11 mg/dL (9-20); Calcium 9.4 mg/dL (8.4-10.2); Carbon Dioxide 31 mmol/L (22-30); Chloride 102 mmol/L (98-107); Glucose 130 mg/dL (74-99); Non-African American GFR(CKD) >90 (>60 ml/min/1.73 sqM); Potassium 4.5 mmol/L (3.5-5.1); Sodium 139 mmol/L (137-145)
--- NOTE | 2022-08-19 10:15 | P.CRDCN ---
History of Present Illness History of present illness: HISTORY OF PRESENT ILLNESS: This is a 67 year old male with a past medical history significant for pulmonary embolism, hypertension, and obstructive sleep anpea with CPAP use. Patient does not follow with a timber buyer. We have been asked to see the patient in cons ultation for chest pain. Patient examined at the bedside. Patient presented to the hospital with a chief complaint of chest pain. Patient states he has been having pain for the past few months. He states the pain is usually constant but not so severe that it is debilitating. He states the pain is usually in the middle of his chest. He also complains of lower back pain. He states when he moves around the pain seems to make it better. Patient states when he had his echocardiogram performed yesterday he was having some discomfort in the area where the ultrasound probe was. The patient states he was at Dr. Johnson's office recently and was found to have uncontrolled blood pressure. The patient states he thinks they may have used the wrong size blood pressure cuff. The patient's blood pressures have been elevated since he has been in the hospital. * EKG reveals sinus mechanism with no signs of acute ischemia * Chest xray negative for acute pulmonary disease * Laboratory data: WBC 4.5. Hemoglobin 16.3. Platelet count 183. D-dimer 0.28. Sodium 139. Potassium 4.5. BUN 11. Creatinine 0.84. Troponin negative x 3 * Current home cardiac medications include losartan/hydrochlorothiazide 100- 12.5mg daily * Echocardiogram completed revealing ejection fraction 55-60%, moderate concen tric left ventricular hypertrophy, mild RV enlargement REVIEW OF SYSTEMS: At the time of my exam: CONSTITUTIONAL: Denies fever or chills. HEENT: Denies blurred vision, vision changes, or eye pain. Denies hemoptysis CARDIOVASCULAR: Denies chest pain. Denies orthopnea. Denies PND. Denies palpitations RESPIRATORY: Denies shortness of breath. GASTROINTESTINAL: Denies abdominal pain. Denies nausea or vomiting. HEMATOLOGIC: Denies bleeding disorders. GENITOURINARY: Denies any blood in urine. SKIN: Denies pruitis. Denies rash. PHYSICAL EXAM: VITAL SIGNS: Reviewed. GENERAL: Well-developed in no acute distress. HEENT: Head is normocephalic. Pupils are equal, round. Sclerae anicteric. Mucous membranes of the mouth are moist. Neck supple. No JVD or thyromegaly LUNGS: Respirations even and unlabored. Lungs essentially clear to auscultation bilaterally. HEART: Regular rate and rhythm. S1 and S2 heard. ABDOMEN: Soft. Nondistended. Nontender. EXTREMITIES: Normal range of motion. No clubbing or cyanosis. Peripheral pulses intact. No lower extremity edema NEUROLOGIC: Awake and alert. Oriented x 3. ASSESSMENT: Chest pain, troponins negative 3 History of pulmonary embolism Hypertension Mild RV enlargement Obstructive sleep apnea with CPAP use PLAN: 2D echo obtained and reviewed D-Dimer WNL Discontinue losartan. Begin patient on valsartan 320 mg daily Continue hydrochlorothiazide Patient to undergo dobutamine stress test today If negative, he may be discharged home from a cardiac standpoint Nurse practitioner note has been reviewed by physician. Signing provider agrees with the documented findings, assessment, and plan of care. Past Medical History Past Medical History: Hypertension Additional Past Medical History / Comment(s): cyst mid back: removed a year ago History of Any Multi-Drug Resistant Organisms: None Reported Past Surgical History: Joint Replacement, Orthopedic Surgery, Tonsillectomy Additional Past Surgical History / Comment(s): arthroscopy knee, benny knee replaced, colonoscopy Past Anesthesia/Blood Transfusion Reactions: Previous Problems w/ Anesthesia Additional Past Anesthesia/Blood Transfusion Reaction / Comment(s): attempted procedure 06/29 pt states unable to do r/t unable to use glidoscope was given letter Past Psychological History: No Psychological Hx Reported Smoking Status: Never smoker Past Alcohol Use History: Occasional Past Drug Use History: None Reported - Past Family History Father Family Medical History: No Reported History Additional Family Medical History / Comment(s): emphysema Medications and Allergies Home Medications Medication Instructions Recorded Confirmed Type Losartan/Hydrochlorothiazide 1 tab PO DAILY 06/24/17 08/18/22 History [Hyzaar 100-12.5 Tablet] Albuterol Inhaler [Ventolin Hfa 2 puff INHALATION RT-QID PRN 08/25/20 08/18/22 History Inhaler] Allergies Allergy/AdvReac Type Severity Reaction Status Date / Time No Known Allergies Allergy Verified 08/18/22 12:15 Physical Exam Vitals: Vital Signs Temp Pulse Pulse Pulse Resp BP BP 08/19/22 07:36 08/19/22 07:00 97.8 F 73 20 08/19/22 02:00 97.8 F 63 14 124/82 08/18/22 20:00 97.9 F 62 16 08/18/22 15:05 97.7 F 73 17 08/18/22 14:18 78 20 147/85 08/18/22 13:51 63 16 144/77 08/18/22 12:59 64 16 150/84 08/18/22 12:00 70 16 153/95 08/18/22 11:51 70 16 153/96 08/18/22 11:12 75 08/18/22 10:51 75 20 139/86 08/18/22 10:49 97.8 F 87 20 179/98 BP BP Pulse Ox 08/19/22 07:36 93 L 08/19/22 07:00 155/94 97 08/19/22 02:00 97 08/18/22 20:00 138/86 95 08/18/22 15:05 164/95 95 08/18/22 14:18 98 08/18/22 13:51 98 08/18/22 12:59 98 08/18/22 12:00 98 08/18/22 11:51 98 08/18/22 11:12 08/18/22 10:51 98 08/18/22 10:49 96 Intake and Output 08/18/22 08/19/22 08/19/22 22:59 06:59 14:59 Other: # Voids 2 2 Results 08/19/22 08:46 08/19/22 08:46 Cardiac Enzymes 08/18/22 08/18/22 08/18/22 Range/Units 11:12 11:12 14:34 AST 28 (17-59) U/L Troponin I <0.012 <0.012 (0.000-0.034) ng/mL 08/18/22 Range/Units 18:03 AST (17-59) U/L Troponin I <0.012 (0.000-0.034) ng/mL Coagulation 08/18/22 Range/Units 11:12 PT 10.0 (9.0-12.0) sec APTT 23.3 (22.0-30.0) sec CBC 08/18/22 Range/Units 11:12 WBC 5.3 (3.8-10.6) k/uL RBC 5.12 (4.30-5.90) m/uL Hgb 16.2 (13.0-17.5) gm/dL Hct 47.7 (39.0-53.0) % Plt Count 180 (150-450) k/uL Comprehensive Metabolic Panel 08/18/22 Range/Units 11:12 Sodium 137 (137-145) mmol/L Potassium 4.0 (3.5-5.1) mmol/L Chloride 103 (98-107) mmol/L Carbon Dioxide 27 (22-30) mmol/L BUN 13 (9-20) mg/dL Creatinine 0.74 (0.66-1.25) mg/dL Glucose 136 H (74-99) mg/dL Calcium 9.2 (8.4-10.2) mg/dL AST 28 (17-59) U/L ALT 32 (4-49) U/L Alkaline Phosphatase 70 (38-126) U/L Total Protein 7.5 (6.3-8.2) g/dL Albumin 4.3 (3.5-5.0) g/dL Current Medications Generic Name Dose Route Start Last Admin Trade Name Freq PRN Reason Stop Dose Admin Albuterol Sulfate 2 puff 08/18/22 13:09 Albuterol Hfa Inhaler INHALATION RT-QID PRN Shortness Of Breath Heparin Sodium (Porcine) 5,000 unit 08/18/22 16:00 08/18/22 22:57 Heparin Sodium,Porcine/Pf 5,000 Unit/0.5 Ml Syringe SQ 5,000 unit Q8HR OBINNA Administration Hydrochlorothiazide 12.5 mg 08/19/22 09:00 Hydrochlorothiazide 12.5 Mg Cap PO DAILY [facility] Losartan Potassium 100 mg 08/19/22 09:00 Losartan 50 Mg Tab PO DAILY OBINNA Naloxone HCl 0.2 mg 08/18/22 13:08 Naloxone 0.4 Mg/Ml 1 Ml Vial IV Q2M PRN Opioid Reversal Nitroglycerin 0.4 mg 08/18/22 11:39 08/18/22 11:43 Nitroglycerin Sl Tabs 0.4 Mg Tab SUBLINGUAL 0.4 mg Q5M PRN Administration Chest Pain Intake and Output 08/18/22 08/19/22 08/19/22 22:59 06:59 14:59 Other: # Voids 2 2 08/18/22 11:12 08/18/22 11:12
[2022-08-19] MEDS ORDERED: DOBUTamine DRIP for NUC MED 500 MG/250 ML BAG IV ONE (11:45)
--- NOTE | 2022-08-19 12:17 | CA ---
Dobutamine Stress Echocardiogram Report Benjamin Marcelo Age: 67 Gender: M : 1955 Exam Date: 08/19/2022 11:25 Exam Location: [facility] Ordering Physician: Lisandra Vergara Referring Physician: [id number] Shop Foreman: Catarina Allen RDCS Technologist: Ht (in): 72 Wt (lb): 320 Procedure CPT: Indication: CP ICD-9 Codes: Rhythm: Patient History: Atypical angina, Hypertension Cardiac Medications: Medications in past 24 hours: Contrast: Lumason Total Dose (mL): 10 Stress Results Protocol: Dobutamine Peak Dose (???g/kg/min): 30 Duration (min:sec): Atropine:(mg) Target HR: 131 Double Product: 10914 Resting HR: 87 Resting BP: 142 / 78 Peak HR: 145 Peak BP: 149 / 63 Max Predicted HR: 154 94 % Max Predicted HR Stress Summary: The patient's target heart rate was achieved. BP Response: Normal Reason for Termination: Exceeded target heart rate (85% max predicted) Cardiac Symptoms: Test terminated after reaching target heart rate (85% max predicted) ECG Analysis Resting EKG: Stress EKG: Arrhythmia: Echo Analysis Base Echo Analysis: Low Echo Anaylsis: Peak Echo Analysis: Recovery Echo: MEASUREMENTS (Male/Female) Normal Values CONCLUSIONS Baseline heart rate 82 beats a minute, Baseline blood pressure 142/78 mmHg Baseline 12-lead EKG showed sinus mechanism with a 0.[address] depression inferiorly Patient received dobutamine infusion per protocol Peak heart rate 144 bpm Peak blood pressure 147/52 mmHg On dobutamine no ECG evidence for ischemia noted. No arrhythmias noted Baseline 2-D echo images are suboptimal especially in the parasternal views Definity contrast was used With a dobutamine infusion up to 30 mics, there was excellent augmentation of overall LV contractility in a stepwise manner without development of any wall motion abnormalities @Recovery tissue programmed systolic function with normal Impression No ECG ms for ischemia No exercise-induced Dr. Leander Cooper MD (Electronically Signed) Final Date: 19 August 2022 12:16
--- NOTE | 2022-08-19 12:54 | P.HPIM ---
History of Present Illness H&P Date: 08/19/22 Chief Complaint: Chest pain. This is a history and physical on a 67-year-old white male with known history of hypertension history DVT was a nonsmoker. He's been complaining of chest pain intermittently and it was getting worse. No nausea or vomiting no radiation but the pain stop her from doing what he normally would want to do. He is a nonsmoker. No illicit substance abuse stated. He is admitted for appropriate chest pain workup. Review of Systems Constitutional: Denies chills, Denies fever Eyes: denies blurred vision, denies pain Ears, nose, mouth and throat: Denies headache, Denies sore throat Cardiovascular: Reports as per HPI, Reports chest pain Musculoskeletal: Denies myalgias Integumentary: Denies pruritus, Denies rash Neurological: Denies numbness, Denies weakness Past Medical History Past Medical History: Hypertension Additional Past Medical History / Comment(s): cyst mid back: removed a year ago History of Any Multi-Drug Resistant Organisms: None Reported Past Surgical History: Joint Replacement, Orthopedic Surgery, Tonsillectomy Additional Past Surgical History / Comment(s): arthroscopy knee, benny knee replaced, colonoscopy Past Anesthesia/Blood Transfusion Reactions: Previous Problems w/ Anesthesia Additional Past Anesthesia/Blood Transfusion Reaction / Comment(s): attempted procedure 06/29 pt states unable to do r/t unable to use glidoscope was given letter Past Psychological History: No Psychological Hx Reported Smoking Status: Never smoker Past Alcohol Use History: Occasional Past Drug Use History: None Reported - Past Family History Father Family Medical History: No Reported History Additional Family Medical History / Comment(s): emphysema Medications and Allergies Home Medications Medication Instructions Recorded Confirmed Type Losartan/Hydrochlorothiazide 1 tab PO DAILY 06/24/17 08/18/22 History [Hyzaar 100-12.5 Tablet] Albuterol Inhaler [Ventolin Hfa 2 puff INHALATION RT-QID PRN 08/25/20 08/18/22 H istory Inhaler] Allergies Allergy/AdvReac Type Severity Reaction Status Date / Time No Known Allergies Allergy Verified 08/18/22 12:15 Physical Exam Vitals: Vital Signs Temp Pulse Pulse Resp BP BP BP 08/19/22 07:36 08/19/22 07:00 97.8 F 73 20 08/19/22 02:00 97.8 F 63 14 124/82 08/18/22 20:00 97.9 F 62 16 138/86 08/18/22 15:05 97.7 F 73 17 164/95 08/18/22 14:18 78 20 147/85 08/18/22 13:51 63 16 144/77 08/18/22 12:59 64 16 150/84 BP Pulse Ox 08/19/22 07:36 93 L 08/19/22 07:00 155/94 97 08/19/22 02:00 97 08/18/22 20:00 95 08/18/22 15:05 95 08/18/22 14:18 98 08/18/22 13:51 98 08/18/22 12:59 98 Intake and Output 08/18/22 08/19/22 08/19/22 22:59 06:59 14:59 Other: # Voids 2 2 - Constitutional General appearance: obese - EENT Eyes: no abnormal pupil - Neck Neck: no lymphadenopathy - Respiratory Respiratory: bilateral: CTA - Cardiovascular Rhythm: regular Heart sounds: normal: S1, S2 Abnormal Heart Sounds: no S3 Gallop - Gastrointestinal General gastrointestinal: soft, no tenderness, no umbilical hernia - Integumentary Integumentary: no cellulitis - Neurologic Neurologic: CNII-XII intact Results CBC & Chem 7: 08/19/22 08:46 08/19/22 08:46 Labs: Abnormal Lab Results - Last 24 Hours (Table) 08/19/22 Range/Units 08:46 Carbon Dioxide 31 H (22-30) mmol/L Glucose 130 H (74-99) mg/dL Thrombosis Risk Factor Assmnt - Choose All That Apply Each Factor Represents 1 point: Swollen legs (current) Each Risk Factor Represents 2 Points: Age 61-74 years Each Risk Factor Represents 3 Points: History of DVT/PE Thrombosis Risk Factor Assessment Total Risk Factor Score: 6 Thrombosis Risk Factor Assessment Level: High Risk Assessment and Plan (1) History of COVID-19 Current Visit: Yes Status: Acute Code(s): Z86.16 - PERSONAL HISTORY OF COVID-19 SNOMED Code(s): 420414571415794724 (2) History of DVT (deep vein thrombosis) Current Visit: Yes Status: Acute Code(s): Z86.718 - PERSONAL HISTORY OF OTHER VENOUS THROMBOSIS AND EMBOLISM SNOMED Code(s): 466195645 (3) Chest pain Current Visit: Yes Status: Acute Code(s): R07.9 - CHEST PAIN, UNSPECIFIED SNOMED Code(s): 82317269 (4) Hypertension Current Visit: No Status: Acute Code(s): I10 - ESSENTIAL (PRIMARY) HYPERTENSION SNOMED Code(s): 77518276 Plan: Reconcile home medications per Rule out myocardial infarction. Stress test to be done today. Lifestyle improvement and dietary modifications reiterated to the patient. Anticipate discharge if cardiology clears the patient
[2022-08-19 14:04] VITALS: BP 133/82; PULSE 91; RESP 12; TEMP 97.7
[2022-08-19 15:47] LABS: Chol/HDL Ratio 3.57 Ratio; LDL Cholesterol,Calculated 135.4 mg/dL (0.0-131.0)
== END 2022-08-19 14:25 ==
LOC: EC 10:46 → 6NMEDSUR 13:08
PROVIDERS: ADMIT Family Medicine; ATTEND Family Medicine
DX: R07.9 Chest pain, unspecified (principal); I10 Essential (primary) hypertension; Z86.16 Personal history of COVID-19; Z96.653 Presence of artificial knee joint, bilateral; Z86.711 Personal history of pulmonary embolism; I51.7 Cardiomegaly; E66.9 Obesity, unspecified; Z68.41 Body mass index [BMI] 40.0-44.9, adult; G47.33 Obstructive sleep apnea (adult) (pediatric); Z98.890 Other specified postprocedural states; Z83.6 Family history of other diseases of the respiratory system; Z86.718 Personal history of other venous thrombosis and embolism; Z79.899 Other long term (current) drug therapy
CPT/HCPCS: 96372; 99285; 36415; 94760; 93005; 85379; 83880; 80061; 80053; 80048; 83735; 84484; 85025 ×2; 85610; 85730; 83036; 71046; G0378 ×2; C8929; C8930; J1250; Q9950 ×2; J1644; 93306; 93351